=== PATIENT | female | born 1950 | race Two or more races ===

== ENCOUNTER 2023-05-19 05:36 | Inpatient (IN) | payer MEDICARE, SELFPAY ==
[2023-05-19] VITALS (82 sets, daily range): BP systolic 74–221; BP diastolic 56–156
--- NOTE | 2023-05-19 04:59 | EDRN ---
15mg etomidate and 8mg vecuronium IV administered per Dr Menjivar for intubation
--- NOTE | 2023-05-19 05:03 | EDRN ---
Pt intubated by Dr Menjivar with 7.0 ett, 22cm lip
[2023-05-19 05:05] LABS: % Basophils 0.8 % (0-2); % Eosinophils 2.1 % (0-6); % Immature Granulocytes 0.5 % (0-0.5); % Lymphocytes 57.9 % (20.5-51.1); % Monocytes 3.1 % (1.7-9.3); % Neutrophils 35.6 % (42.2-75.2); Absolute Basophils 0.1 10^3/uL (0-0.2); Absolute Eosinophils 0.3 10^3/uL (0-0.7); Absolute Immature Granulocytes 0.1 10^3/uL (0-0.05); Absolute Lymphocytes 8.1 10^3/uL (1.2-3.4); Absolute Monocytes 0.4 10^3/uL (0.1-0.6); Hematocrit 46.8 % (37.0-47.0); Mean Corp Hgb Conc. 32.1 g/dL (33.0-37.0); Mean Corpuscular Hgb 30.8 pg (27.0-31.0); Mean Corpuscular Volume 96.1 fL (81.0-99.0); Mean Platelet Volume 10.3 fL (7.4-10.4); Nucleated Red Blood Cells % 0 %; Platelet Count 315 10^3/uL (130-400); Red Blood Cell Count 4.87 10^6/uL (4.20-5.40); Red Cell Dist. Width 13.9 % (11.5-14.5); White Blood Cell Count 14.1 10^3/uL (4.8-10.8)
--- NOTE | 2023-05-19 05:09 | EDRN ---
5000 units heparin given IV by BAKARI Johnson per Dr Menjivar
--- NOTE | 2023-05-19 05:14 | HPS.HSE ---
Family Physician
-
Family Physician: Unknown.
Chief Complaint
-
Chest pain x3 days.
History of Present Illness
72 y/o female with essential hypertension per limited outpatient notes presenting with chest pain and respiratory instability. STEMI alert was activated by EMS. The patient was mottled and cyanotic per the emergency room physician and was
intubated prior to any history. All history is taken from EMS and the limited medical record.
EKG shows sinus tachycardia with LVH and a LBBB pattern with deep ST depressions in the anterolateral precordium and an overall ischemic appearance.
The patient's , Yin, arrived and provided limited history. She reports that the patient's chest pain has likely been going on for at least 3 weeks, but she only mentioned it over the past three days. She reports that the patient does not
visit doctors and has never taken more than one month's supply of a medication.
Yin also provided us with a DNR order signed in 2003. The ER reports that prior to intubation, the patient was told what intubation is and agreed to proceed. Further reading of the document reveals that the document is aimed more at a permanent
state rather than an acute presentation, but it does decline intubation, mechanical ventilation and invasive testing/procedures. After discussing this with Yin, she would like to proceed with cardiac catheterization and is listed as the decision
maker on the document.
CXR was performed prior to bringing the patient to the concrete mixing plant laborer. This shows diffuse, pulmonary infiltrates, right > left, the ET tube is in satisfactory position, an OG tube terminates in the stomach. Some laboratory studies returned. Of note -
WBC is 14.1, BUN 27, Cr 1.5, glucose 345.
Critical Care Time = 35 minutes.
Medical History
Past Medical History
Past Medical History: Reports HTN
Past Surgical History: Reports None
Social History
Unable to obtain full social history at this time due to: Patient Intubation
Family History
Family History: Unable to Obtain
Allergies / Home Medications
Allergies reflects when Allergies were last updated in [facility].
Home Medications with original date entered in [facility]
Allergy/Medication List:
Deferred.
If medication reconciliation has not been performed, why?: Unresponsive
Review of Systems
-
Unable to obtain full review of systems at this time due to: Patient Intubation
Physical Exam
Vital Signs
Vital Signs
Pulse Resp BP Pulse Ox
80 22 104/76 100
05/19/23 05:10 05/19/23 05:10 05/19/23 05:10 05/19/23 05:10
Physical Exam
General: Obese and Intubated
HEENT: NormoCephalic, Anicteric, Moist mucous membranes and Atraumatic
Respiratory: Rales
Cardiac: S1/S2 and Regular Rhythm
Breast: Deferred by me
GI: Soft, Non Tender, Non Distended and Normal Bowel Sounds
Rectal: Deferred by Provider
Genito-urinary: Deferred by me
Musculoskeletal: No Clubbing, No Cyanosis, Edema, Left Lower Extremity and Edema, Right Lower Extremity
Neuro: Sedated
Data Reviewed
-
Diagnostic Radiology: Image Personally Visualized and interpreted
Medical Tests (Nuc Med, Echo, EKG etc): Image Personally Visualized and interpreted and Report Reviewed by me
Impression/Plan
-
Impression/Plan: 72 y/o female with limited past medical contact admitted with chest pain for at least 3 days, respiratory failure requiring intubation/mechanical ventilation and EKG concerning for STEMI.
#Abnormal EKG/STEMI
-After thorough discussion with Yin (), the decision has been made to proceed with cardiac catheterization under emergency conditions.
-I explained risks/benefits, particularly in the context of the patient's DNR. She is agreeable.
-Further instructions to follow.
--- NOTE | 2023-05-19 05:14 | EDRN ---
Report given to ballistics laboratory gunsmith, will call when pt can come upstairs
--- NOTE | 2023-05-19 05:16 | EDRN ---
Dr Menjivar attempting to insert OG tube
[2023-05-19 05:20] LABS: ALT (SGPT) 21 U/L (0-35); AST (SGOT) 32 U/L (14-36); Albumin 3.7 g/dl (3.5-5.0); Alkaline Phosphatase 80 U/L (38-126); Blood Urea Nitrogen 27 mg/dl (7-17); Calcium 9.4 mg/dl (8.4-10.2); Carbon Dioxide 17 mmol/L (22-30); Chloride 104 mmol/L (98-107); Glucose 345 mg/dl (70-99); Potassium 4.2 mmol/L (3.5-5.1); Sodium 140 mmol/L (135-145); Total Bilirubin 0.7 mg/dl (0.2-1.3); Total Protein 6.1 g/dl (6.3-8.2)
--- NOTE | 2023-05-19 05:20 | EDRN ---
mushroom laborer ready, Dr Rey to bedside, OG tube inserted by Dr Menjivar
--- NOTE | 2023-05-19 05:21 | EDRN ---
Pt's to bedside
--- NOTE | 2023-05-19 05:21 | EDRN ---
Portable chest xray being obtained
[2023-05-19 05:23] LABS: INR 1.14; PT 14.4 Sec (11.4-14.6)
--- NOTE | 2023-05-19 05:23 | EDRN ---
Dr Rey speaking with pt's - given pt's Medicare card
[2023-05-19 05:24] LABS: APTT 29.8 Sec (23.4-35.0)
[2023-05-19 05:57] LABS: Troponin I 0.494 ng/ml
[2023-05-19 06:17] LABS: ACT-LR - POC 350 Seconds (116-155)
--- NOTE | 2023-05-19 06:23 | ED.GENMED ---
History of Present Illness
General
Chief Complaint: Chest Pain
Time Seen by Provider: 05/19/23 05:06
Travel History
Have you had any contact with someone who has COVID-19?: Unable to Answer
Do you have any symptoms of coronavirus? Fever > 100 degrees, chills, cough, shortness of breath, sore throat, loss of taste or smell, muscle aches, or headache?: Unable to Answer
History of Present Illness
History of Present Illness:
72-year-old female brought in by EMS after complaining of chest pain.� Per medic on scene, patient stated that she was having substernal chest pain that has been present for the last 3 days.� Medics stated that patient was mottled and gasping for
air.� Patient transported to the hospital immediately.� And route she got CPAP which medics stated was an improvement to her respiratory status.� Patient received fentanyl which did not change patient's chest pain.� STEMI alert was called
prehospital, though EKG was unable to be transmitted.� Patient has a past medical history significant for hypertension.� According to her , she has been noncompliant with outpatient physician appointments.�
Upon arrival, patient was nonverbal, mottled at very cyanotic.� She was gasping and air from air hunger.� She was able to consent to intubation with physical cues.� Patient was intubated by myself using a 7-0 tube.� An OG tube was placed shortly
thereafter.� Both tubes were confirmed with chest x-ray.
Review of systems: Chest pain, shortness of breath.� Review of systems limited due to patient condition and intubated status.
Physical exam:
General patient is obtunded elderly female who appears stated age.
ENT: Dentition appears intact with no trauma.� Neck is supple.
Chest: Heart is tachycardic rate.� Sinus rhythm.� No murmurs rubs or gallops appreciated
Pulmonary: Lungs are diminished bilaterally right worse than left.� There is some rhonchi heard
Abdomen is soft, nontender, nondistended.
Skin is diaphoretic mottled, lips are cyanotic
Extremities: Moves all 4 extremities.� Thready pulses.
Neuro: Unable to obtain due to patient condition
Psych: Unable to obtain due to patient condition
EKG shows sinus tachycardia rate of 122 with left ventricular hypertrophy.� Left bundle branch block present.� ST depressions in the anterior lateral leads.� Generalized ischemia present.� No old EKG available for comparison.
Differential: STEMI, ACS, flash pulmonary edema
Plan: STEMI alert was called at 4:45 AM despite not having an EKG.� Dr. Jeffery, employee health nurse contacted the ER.� Eventually spoke with him.� He arrived shortly after our conversation to take patient up to Explosives Worker.
, who became present at the bedside, produced a document after patient was intubated that patient was a DNR.� Patient's verbally consented to allow patient to be taken to the Explosives Worker for an invasive procedure.
Review of Systems
Review of Systems
Other source history: family and ambulance crew
All Other Systems: Not applicable
Constitutional: Reports sleep disturbance
Respiratory: Reports trouble breathing
Cardiac: Reports chest pain
Phy Exam
Physical Exam
Physical Exam:
Physical exam:
General patient is obtunded elderly female who appears stated age.
ENT: Dentition appears intact with no trauma.� Neck is supple.
Chest: Heart is tachycardic rate.� Sinus rhythm.� No murmurs rubs or gallops appreciated
Pulmonary: Lungs are diminished bilaterally right worse than left.� There is some rhonchi heard
Abdomen is soft, nontender, nondistended.
Skin is diaphoretic mottled, lips are cyanotic
Extremities: Moves all 4 extremities.� Thready pulses.
Neuro: Unable to obtain due to patient condition
Psych: Unable to obtain due to patient condition
General Physical Exam
General Presentation: severe distress
Scores
Heart Score for Chest Pain Patients
STEMI patient?: Yes
Course
Orders/Labs/Results
Orders:
Orders
05/19/23 04:57
Electrocardiogram (*1) Urgent
Reason for Study: Chest Pain
Cardiac Monitoring- Treatment ONCE
EKG- Treatment ONCE
IV Insert/Care/Rem.- Treatment PRN
O2 Therapy [RESP] Urgent
Titrate/Wean O2 to maintain O2 sat greater than (%): 90
Special Instructions: Maintain sats >/=90%
Pulse Ox/spot Check [RESP] Urgent
Quantity: 1
Special Instructions: ON ROOM AIR
05/19/23 04:58
Complete Blood Count/With Diff Urgent
Comprehensive Metabolic Panel Urgent
PTT Urgent
Prothrombin Time Urgent
Troponin I Urgent
05/19/23 05:06
CR Chest Portable - 1 View Urgent
Comment:
Reason For Exam: intubation, stemi
Reason Study Needs to be Portable: Patient Unstable
05/19/23 05:10
Propofol 1,000,000 Mcg/100 ml [Diprivan] 1,000,000 mcg in 100 ml .ROUTE .STK-MED
Abnormal Lab Results
05/19/23
04:58
WBC 14.1 H 10^3/uL
(4.8-10.8)
MCHC 32.1 L g/dL
(33.0-37.0)
Carbon Dioxide 17 L mmol/L
(22-30)
BUN 27 H mg/dl
(7-17)
Creatinine 1.5 H mg/dL
(0.6-1.0)
Glucose 345 H mg/dl
(70-99)
Troponin I 0.494 H* ng/ml
Total Protein 6.1 L g/dl
(6.3-8.2)
05/19/23 04:58
05/19/23 04:58
Vital Signs
Initial and Last Documented VS:
Initial Vital Signs
Pulse BP Pulse Ox
122 143/88 75
05/19/23 05:00 05/19/23 05:00 05/19/23 05:00
Last Documented Vital Signs
Pulse Resp BP Pulse Ox
141 22 221/156 100
05/19/23 05:25 05/19/23 05:25 05/19/23 05:25 05/19/23 05:25
Procedures
Intubations
Procedure completed by: Myself
Method of Intubation: glidescope
Tube size (cm): 7.0
Placement confirmed by: direct visualization
Breath sounds after intubation: equal
Intubation complications: no complications
MDM/Problems Addressed
Differential Diagnosis Includes:
STEMI, FPE, ACS, PTX,
MDM/Problems Addressed:
72f with chest pain, diaphoresis, pallor, mottled
Chronic conditions affecting care:
medical non compliance
*Critical Care Note
Total Time (30-74mins, 75-104mins- exclusive of procedures): 30 (Critical care statement: A total of 30 minutes of critical care time was provided for this patient. This time is separate from time utilized to perform the aforementioned documented
procedures. Aggregate critical care time includes only time during which I was engaged in work directl)
Patient Management
Social determinants of health affecting care: Poor outpatient follow-up
Discussion with other providers: Order Builder (Dr Rey)
ED Attending Note
-
Portions of this chart may have been created with voice recognition software.� Occasional wrong word or��sound alike� substitutions may have occurred due to the inherent limitations of voice recognition software.
Discharge Plan
Departure
Patient Disposition: TECHNICAL ANALYST
Date of Disposition: 05/19/23
Presentation/result/management discussed w/ accepting MD/DO: Dr Rey
Condition: Fair
Discharge Problem:
Cardiac ischemia
Interventions
Interventions:
*Risk Screen - Suicide Last Done: 05/19/23 04:53
*General Assessment Last Done: 05/19/23 04:53
*Neglect/Abuse Screening Last Done: 05/19/23 04:53
ED- Fall Risk Assessment Last Done: 05/19/23 05:17
*ED COVID-19 Vaccine History Last Done: 05/19/23 05:00
*Nursing Disposition Last Done: 05/19/23 05:31
ED- Cardiac Assessment Last Done: 05/19/23 05:16
Discharge Date and Time
Discharge Date/Time: 05/19/23 05:31
--- NOTE | 2023-05-19 07:00 | ITS.CL.ANGIO ---
Pugger Helper - Angioplasty
Angioplasty
Procedure Report:
CARDIAC CATHETERIZATION REPORT
Date of Procedure: 05/19/2023
Referring: Tico Menjivar D.O.
INDICATION: ST elevation myocardial infarction, hypoxic respiratory failure.
PROCEDURE:
1. Left heart catheterization.
2. Coronary angiography.
3. Successful PCI of the acutely occluded diagonal.
4. Left ventriculography.
ACCESS:
Failed right radial access as the wire failed to advance beyond the proximal forearm.
6 Hungarian right common femoral artery using a modified Seldinger technique with a micropuncture kit under ultrasound guidance.
CATHETERS:
1. 5 Hungarian JR4.
2. 5 Hungarian JL 4.
3. 6 Hungarian EBU 4.0 guiding catheter.
4. 5 Hungarian angled pigtail catheter.
HEMODYNAMIC DATA
Weight (kg): 72.0
AO (s/d/x, mmHg): 197/122/155
LV (s/x mmHg): 197/52
LEFT VENTRICULOGRAPHY: Performed in an REYES projection. Dilated left ventricle with akinesis of the inferior wall and severe hypokinesis of the lateral wall with severely depressed systolic function. Left ventricular ejection fraction estimated at
20%. There is at least moderate mitral valve regurgitation. The aortic root and visualized ascending aorta appear normal. There is no aortic valve insufficiency.
CORONARY ANGIOGRAPHY
Dominance: Right.
Left Main: Normal size, bifurcating vessel. There is no coronary artery disease.
LAD: Normal size vessel that wraps around the distal apex and gives rise to 1 significant diagonal. There is a 60-70% lesion in the distal vessel, prior to the apex. The diagonal is a normal-sized vessel supplying much of the lateral and
anterolateral wall. It is acutely occluded at its proximal margin.
Ramus: Congenitally absent.
Circumflex: Normal size, nondominant vessel giving rise to 2 observable marginals. The vessel is chronically subtotally occluded in its proximal margin. The first marginal is occluded at its origin. It appears to fill from faint collaterals.
The distal circumflex is supplied by autologous collaterals from the proximal circumflex atrial branch.
RCA: Normal size, dominant vessel. The vessel is chronically totally occluded in its midportion. The distal vessel supplied by collaterals from the LAD and the circumflex.
INTERVENTION(S)
1. Successful PCI of the acutely occluded large first diagonal (Medtronic [place] 2.0 x 18 MARIA EUGENIA) with reduction in stenosis to 0%, restoring BETO-3 flow.
Narrative:
The decision was made to proceed with percutaneous coronary intervention. After checking the LVEDP, furosemide 40 mg was given IV. The patient was hypertensive and nicardipine was ordered. The diagnostic catheter was removed over a wire and a 6Fr
EBU 4.0 guiding catheter was advanced to the aortic root and seated in the left main coronary artery. After placing the guiding catheter, the patient lapsed into polymorphic ventricular tachycardia. The patient was defibrillated 200 J with
confucianism of sinus rhythm. A Power Turn Flex wire was advanced into the distal diagonal. The acute, 100% proximal diagonal lesion was predilated with a 2.0 x 12 semi-compliant balloon to 12 cj. The semi-compliant balloon was removed and a
Medtronic [place] 2.0 x 18 drug-eluting stent was advanced. The stent was deployed at 12 atmospheres. The stent balloon was removed. Angiography was performed in orthogonal views, confirming good stent expansion and an excellent angiographic
result with some mild oversizing of the stent. At this point, the patient's blood pressure had fallen to between 140 and 160 mmHg systolic. Nicardipine was deferred. Nitroglycerin 100 mcg was given intracoronary with some modest improvement.
The coronary angiogram was reviewed. I was concerned that the patient may require intervention on the circumflex as I was not initially certain of his acuity. After reviewing the angiogram, I became more convinced that the circumflex lesions are a
chronic narrowing and that the diagonal remains the true culprit vessel. In keeping with the culprit shock data, I elected to end the procedure at this time rather than proceed to intervention on the circumflex.
The coronary wire was withdrawn and the guide was disengaged from the artery. The catheter was removed over a standard J-wire.
Closure Device: 6 Hungarian Angio-Seal.
Radiation (mGy): 371.60
DAP (cm2.Gy): 40.8793
Fluoroscopy time (minutes): 8.9
Sedation time (minutes): The patient was intubated and on propofol throughout the entire case.
CONCLUSIONS
1. 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
diagonal, status post successful PCI (Medtronic [place] 2.0 x 18 MARIA EUGENIA) with reduction in stenosis to 0%, restoring BETO-3 flow.
2. Mildly dilated left ventricle with akinesis of the inferior wall and severe hypokinesis of the lateral wall with severely depressed systolic function. Left ventricular ejection fraction estimated at 20%.
3. Severely elevated filling pressures (LVEDP = 52 mmHg at 72.0 kg).
4. At least moderate mitral valve regurgitation on ventriculography.
RECOMMENDATIONS:
1. Expectant management after cardiac catheterization via right common femoral approach.
2. Limited weight bearing for one week.
3. Dual antiplatelet therapy with aspirin and ticagrelor for at least 12 months, followed by aspirin indefinitely.
4. Aggressive diuresis given severity of filling pressure elevation and mitral regurgitation. Bumetanide drip has been ordered.
5. The patient will benefit from guideline directed medical therapy, but we will defer beta-colt at this time due to acute heart failure. Defer CHANA inhibitor due to renal dysfunction.
6. Secondary prevention with high-dose, high potency statin.
7. Echocardiogram ordered and pending.
8. Referral to cardiac rehab.
Copy to: Tico Menjivar D.O.
Benjamin Rey DO, FACC, FACP
--- NOTE | 2023-05-19 08:00 | PTCARENOTE ---
received patient from laborer carpentry dock. sedated and placed on vent by LAST DIPPER. out on propofol for sedation. Bumex gtt ordered by Dr Rey. Awaiting that to be sent up from pharmacy. Will initiate at ordered rate. Able to arouse patient by touch, Pupils 2mm
equal and sluggish. VSS. NSR. on AC on vent 22/450/+5 60%. 94%. OGT in place. bowels hypoactive. round belly. therm holt in place and draining clear yellow urine. Pulses weak even by doppler and limbs cool. warm blankets applied to patient. ABG
done by resp bedside. will continue to monitor.
[2023-05-19] MEDS: LEVOPHED 250 IV (08:20)
[2023-05-19] MEDS: BRILINTA 90 MG PO ×2 (08:34→19:54)
[2023-05-19] MEDS: PROTONIX 40 MG PO (08:34)
[2023-05-19] MEDS: LOW STRENGTH ASPIRIN 81 MG PO (08:34)
[2023-05-19] MEDS: BUMEX 50 IV ×2 (08:42→15:58)
[2023-05-19 08:43] LABS: B.E. -1.5 mmol/L; HCO3 24.3 mmol/L (21-28); Ionized Calcium 1.18 mMOL/L (1.15-1.33); O2 Saturation % 95.8 % (94-98); PCO2 44 mmHg (32-35); PO2 76 mmHg (83-108); Potassium 4.3 mMOL/L (3.5-5.1); pH 7.35 (7.35-7.45)
--- NOTE | 2023-05-19 09:12 | PTCARENOTE ---
levo initiated per orders for sys BP in 70s.
--- NOTE | 2023-05-19 09:44 | CON.INTV ---
Consultation
Consultation Request
Date/Time Consultation Requested: 05/19/2023-7 AM
Date/Time Consultation Performed: 05/19/2023-7:30 AM
Requesting Provider: Cardiology
Performing Provider: Dr. Leal
Reason for Consultation: Ventilator/critical care management
Medical History
-
Chief Complaint: Shortness of breath/CAD
History of Present Illness:
72-year-old female with a history of hypertension presented with chest pain noted to have STEMI, mottled in appearance as well as cyanotic intubated and taken to the cardiac catheterization lab for PCI of the acutely occluded large first
diagonal-mailer apprentice consulted for ventilator/critical care management 05/19/2023. Patient is intubated and sedated and review of systems was unobtainable. The patient does not have significant secretions. Cardiac catheterization results were
reviewed.
Past Medical History
Past Medical History: None (Hypertension)
Past Surgical History: None
Social History
Tobacco: Other (Social history unable as patient is intubated and old records are not available)
Occupational Exposures: Unknown asbestos exposure
Environmental Exposures: Unknown tuberculosis exposure
Family History
Family History: Unable to Obtain
Allergies / Home Medications
Allergies
Allergy/AdvReac Type Severity Reaction Status Date / Time
oxycodone [From Percodan] Allergy Unknown Verified 05/19/23 04:58
Penicillins Allergy Unknown Verified 05/19/23 05:18
Home Medications
Medication Instructions Recorded Confirmed Last Taken Type
Unobtainable 05/19/23 05/19/23 Unknown History
Review of Systems
-
Unable to Obtain full review of systems at this time due to: Patient Intubation
Vitals / Labs / Diagnostic Testing
Vital Signs
Pulse Resp BP Pulse Ox
141 22 221/156 100
05/19/23 05:25 05/19/23 05:25 05/19/23 05:25 05/19/23 05:25
Lab Data
05/19/23 04:58
05/19/23 04:58
Laboratory Results
05/19/23 05/19/23
04:58 08:34
PT 14.4
INR 1.14
APTT 29.8
pH 7.35
pCO2 44 H
pO2 76 L
HCO3 24.3
O2 Delivery Level
Diagnostic Testing:
Physical Exam
-
Exam:
Well-nourished and well-developed in no apparent distress
HEENT-atraumatic, normocephalic, oral tracheal intubation
Neck-supple, no JVD, no bruit
Heart-regular rate and rhythm-no murmurs, rubs or gallops
Chest with rare crackles at the bases
Abdomen-soft, nontender, nondistended, no hepatosplenomegaly
Extremities-no cyanosis, clubbing, edema and good peripheral pulses
Integument-intact, no rashes, lesions or ecchymosis
Neurologically sedated on the ventilator moving extremities
Assessment
-
72-year-old female with a history of hypertension presented with chest pain noted to have STEMI, mottled in appearance as well as cyanotic intubated and taken to the cardiac catheterization lab for PCI of the acutely occluded large first
diagonal-mailer apprentice consulted for ventilator/critical care management 05/19/2023.
Assessment
Respiratory failure due to STEMI/mottled/cyanosis with intubation in ED
Intubated 05/18/2023
Extubated
CAD/STEMI
Status postcardiac [id number]-XHX-buptisa occluded large first diagonal 05/18/2023-Dr. Jeffery
Elevated troponin
Cardiomyopathy-EF 20% on cardiac catheterization
Moderate mitral regurgitation
Congestive heart failure-reduced EF
Mild leukocytosis-WBC 14.1
NORRIS
Hyperglycemia-blood sugar 345
Conditions present prior to admission:
Hypertension
Plan
Patient admitted to cardiovascular intensive care unit
Ventilator settings reviewed
Wean FiO2
Wean PEEP
Spontaneous breathing trial once diuresed
Propofol for comfort
Fentanyl as needed for pain
VAP prevention protocol
Nebulizers if needed-currently not bronchospastic
Follow chest x-ray
Cardiology following-correspondence reviewed
Cardiac catheterization results noted-PCI of occluded first obtuse marginal
Diuresis as tolerated
Monitor renal function, electrolytes, intake/output, lower extremity edema and weight
Replace electrolytes as needed
Trend troponin
Eventual echocardiogram
May need repeat cardiac catheterization-yet to be determined
Norepinephrine as needed
Monitor leukocytosis
Sputum culture if secretions noted-no obvious history of aspiration
Monitor renal function
Nephrology evaluation if renal function worsens
Monitor blood sugar
Insulin supplementation as needed-might need insulin drip
Diabetic nurse practitioner consultation if blood sugars remain elevated
DVT prophylaxis-on Lovenox
GI prophylaxis while on the ventilator-on pantoprazole
Early nutrition
Early mobilization/bedside range of motion
Critical care statement: A total of 50 minutes of critical care time was provided for this patient today. This includes management of unstable vital signs, evaluation of the patient at bedside, reviewing the patient's pertinent medical records
including radiographs, ventilator management, pressor management, spontaneous breathing trial management, microbiology,, laboratory evaluations, and discussion with primary team, consultants, pharmacy, nutrition, physical therapy, case management,
charge nurse, critical care nursing, and respiratory therapy.
Diagnostic data:
Chest x-ray 05/19/2023-endotracheal tube tip above the ajay and nasogastric tube tip in the stomach, no pneumothorax, bilateral parenchymal opacifications right greater than left suspicious for atypical acute pulmonary edema
Cardiac catheterization 05/19/2023-successful PCI of acutely occluded large first diagonal, EF estimated 20%, moderate mitral regurgitation, severely elevated left ventricular end-diastolic pressures-52
Data Reviewed
-
EKG: Report reviewed by me
Radiology: Report reviewed by me
Medical Tests (Nuc Med, Echo etc): Report reviewed by me
Labs: Labs reviewed by me
Old Records: Reviewed
Critical Care Time (in minutes): 50
[2023-05-19 09:59] LABS: Lactic Acid 2.6 mmol/L (0.7-2.0)
[2023-05-19] MEDS: DIPRIVAN 100 IV (10:27)
--- NOTE | 2023-05-19 12:00 | PTCARENOTE ---
propofol and levo weaned off. patient stable and waking up. anxious. emotional support provided. updated over the phone.
[2023-05-19 13:04] LABS: Blood Urea Nitrogen 34 mg/dl (7-17); Calcium 8.6 mg/dl (8.4-10.2); Carbon Dioxide 26 mmol/L (22-30); Chloride 107 mmol/L (98-107); Glucose 116 mg/dl (70-99); Potassium 3.8 mmol/L (3.5-5.1); Sodium 138 mmol/L (135-145); Triglycerides 107 mg/dl (10-149); eGFR 27.71
--- NOTE | 2023-05-19 13:32 | W.PN.UPDATE ---
Update Note
Progress Note Update
Patient was tolerating CPAP wean for 2 hours and became agitated, had episode of emesis, possible aspiration
Patient extubated without difficulties and deep suctioned
Reevaluated the patient at the bedside-no distress postextubation, saturations are adequate
Will monitor closely for aspiration
Continue diuresis
Reviewed with respiratory therapy and critical care nursing
--- NOTE | 2023-05-19 13:56 | RESPNOTE ---
Extubated patient to 6l nasal cannula @ 13:00, without adversity
[2023-05-19] MEDS: DIURIL 0.5 GRAM VIAL 0.5 GRAMS IV (14:14)
[2023-05-19] MEDS: STERILE WATER FOR INJECTION 18 ML IV (14:15)
[2023-05-19] MEDS: MORPHINE SULFATE 2 MG IV ×3 (14:16→21:43)
--- NOTE | 2023-05-19 15:12 | W.PN.UPDATE ---
Update Note
Progress Note Update
Chart reviewed, including cardiac cath procedure and stenting.
Patient now extubated. Vomiting right before. Reports SOB, but O2 sat looks good. Check CXR.
Urine output is increasing on bumex gtt with diuril x1.
Continues on low dose levophed.
Discussed code status: she is full code, but would not want to be on ventilator for extended period of time.
Discussed with interventional cardiology and RN.
CCT 30 min.
[2023-05-19 16:12] LABS: Lactic Acid 1.3 mmol/L (0.7-2.0)
[2023-05-19] MEDS: ERYTHROMYCIN 0.5% OPHTHALMIC OINTMENT 1 APPLIC OPHTH ×2 (17:20→21:44)
--- NOTE | 2023-05-19 18:03 | PTCARENOTE ---
1245- patient gagging on ETT, vomitting brown bilious liquid around ETT. turned on side. attatched OGT to suction and suctioned out patients mouth. resp then at bedside. will call teller manager for orders to extubate if able. pulse ox 99%
[2023-05-19] MEDS: LOVENOX 40 MG SC (18:29)
[2023-05-19] MEDS: LIPITOR 80 MG PO (18:29)
--- NOTE | 2023-05-19 20:00 | PTCARENOTE ---
Assumed care of patient from prior RN, Pt resting in bed , dozing intermittently. AAO x 3, C/o continued chest achiness and continued Lt eye pain/burning. Pt refusing to open eye at this time for exam. SR on monitor with PVC's. Bumex drip
infusing, see flowsheet for totals. 3 L NC 98%, oxygen weaned down to 2 L at this time. Pt states she remains SOB however does not appear dyspneic at rest on exam. Abdomen soft and non tender, denies nausea. Hinton draining straw yellow urine.
No general edema appreciated. DP pulses weakly palpable. Will obtain labs as ordered and follow.
[2023-05-19 20:34] LABS: Blood Urea Nitrogen 40 mg/dl (7-17); Calcium 9.2 mg/dl (8.4-10.2); Carbon Dioxide 26 mmol/L (22-30); Chloride 97 mmol/L (98-107); Glucose 126 mg/dl (70-99); Potassium 3.4 mmol/L (3.5-5.1); Sodium 138 mmol/L (135-145); eGFR 34.05
--- NOTE | 2023-05-19 21:20 | PTCARENOTE ---
Dr Chaparro notified of Potassium level, orders obtained awaiting supplement from pharmacy.
[2023-05-19] MEDS: KCL 40 MEQ PO (21:42)
--- NOTE | 2023-05-19 22:00 | PTCARENOTE ---
Pt c/o continued chest discomfort and continued SOB at rest during hourly checks. Pt anxious and expressing concern that she is still having pain after having her stent previously today. Reassurance provided, educated on post cath pain
expectation. VSS, Pt given Morphine, EKG obtained. Reviewed with Dr Rey. No new orders obtained.
[2023-05-20] VITALS (29 sets, daily range): BP systolic 100–139; BP diastolic 52–105; BMI 24.9
[2023-05-20] MEDS: BUMEX 50 IV (03:31)
[2023-05-20 03:35] LABS: Hematocrit 42.8 % (37.0-47.0); Hemoglobin 14.9 g/dL (12.0-16.0); Mean Corp Hgb Conc. 34.8 g/dL (33.0-37.0); Mean Corpuscular Hgb 30.3 pg (27.0-31.0); Mean Corpuscular Volume 87.2 fL (81.0-99.0); Mean Platelet Volume 10.3 fL (7.4-10.4); Platelet Count 289 10^3/uL (130-400); Red Blood Cell Count 4.91 10^6/uL (4.20-5.40); Red Cell Dist. Width 13.7 % (11.5-14.5); White Blood Cell Count 15.8 10^3/uL (4.8-10.8)
[2023-05-20 03:43] LABS: Lactic Acid 1.2 mmol/L (0.7-2.0)
--- NOTE | 2023-05-20 04:10 | PTCARENOTE ---
AM labs obtained, along with EKG and weight. Pt denies chest pain or sob at present. VSS Assessment unchanged from prior.
[2023-05-20 04:22] LABS: ALT (SGPT) 150 U/L (0-35); Albumin 3.6 g/dl (3.5-5.0); Alkaline Phosphatase 68 U/L (38-126); Blood Urea Nitrogen 43 mg/dl (7-17); Calcium 9.2 mg/dl (8.4-10.2); Carbon Dioxide 29 mmol/L (22-30); Chloride 96 mmol/L (98-107); Direct Bilirubin 0.4 mg/dl (0.0-0.4); Estimated Creatinine Clearance 26 ml/min; Glucose 123 mg/dl (70-99); HDL Cholesterol 86 mg/dl; LDL Cholesterol, Calculated 90 mg/dl; Potassium 3.3 mmol/L (3.5-5.1); Sodium 136 mmol/L (135-145); Total Bilirubin 1.2 mg/dl (0.2-1.3); Total Cholesterol 202 mg/dl (50-199); Triglyceride 131 mg/dl (10-149); Very Low Density Lipoprotein 26 mg/dl (0-30); eGFR 31.66
[2023-05-20 04:38] LABS: AST (SGOT) 1107 U/L (14-36)
[2023-05-20] MEDS: KCL 40 MEQ PO ×3 (05:00→17:40)
[2023-05-20] MEDS: BRILINTA 90 MG PO ×2 (08:43→20:43)
[2023-05-20] MEDS: LOW STRENGTH ASPIRIN 81 MG PO (08:43)
[2023-05-20] MEDS: PROTONIX 40 MG PO (08:43)
[2023-05-20] MEDS: ERYTHROMYCIN 0.5% OPHTHALMIC OINTMENT 1 APPLIC OPHTH ×4 (08:44→20:43)
[2023-05-20] MEDS: MIRALAX 17 GRAMS TUBE (08:44)
[2023-05-20 08:50] LABS: Glycohemoglobin (HgbA1c) 5.8 % (4.0-5.6)
--- NOTE | 2023-05-20 09:03 | W.PN.CD ---
Addendum entered and electronically signed by Benjamin Rey DO 05/23/23 13:28:
Response to CDI: Potassium replacement was deemed necessary for immediate stabilization as well as maintaining adequate potassium levels in the context of aggressive diuresis.
Original Note:
Today's Communication / Plan
-
DC bumetanide gtt and start bumetanide 1 mg daily.
Replace potassium.
TTE pending.
Staged PCI, likely Saturday.
Start metoprolol succinate 12.5 mg daily.
Add dapagliflozin [address] abdomen/pelvis[address]
Check K+, Mg 2+.
Impression / Plan
-
Impression/Plan: 72 y/o female tobacco user and limited medical contact admitted with STEMI and acute heart failure.
#STEMI
-S/P successful PCI to a large, acutely occluded diagonal ([employer]tronic Rolando Clare 2.0 x 18 MARIA EUGENIA) with reduction in stenosis to 0%, restoring BETO III flow.
-Troponin peaked at 190.
-DAPT for at least one year, followed by aspirin indefinitely.
-LV gram shows inferior akinesis, lateral hypokinesis and severely depressed systolic function. LVEF estimated at 20%.
-TTE pending.
-Secondary prevention with high dose, high potency statin.
#ICMO/HFrEF
-Acute, severe.
-New diagnosis.
-Intermittently required norepinephrine yesterday.
-LVEDP = 52 mmHg at the time of cath.
-Severe transaminitis (AST 1107, ALT 150) - likely hepatic congestion.
-Started on bumetanide gtt, augmented with a dose of chlorothiazide. D/C gtt and start bumetanide 1 mg daily.
-Replace potassium.
-Start metoprolol succinate 12.5 mg daily.
-Start dapagliflozin 10 mg daily tomorrow.
#Residual CAD
-RCA 100% occlusion, subtotal mLCx and OM1.
-Plan for staged revascularization during this admission, again based on renal function.
#Acute Kidney Injury
-Stablizing.
-Creatinine 1.5 --> 1.9 --> 1.6 --> 1.7.
-Given leg cramping, check K+/Mg2+.
#Abdominal Pain
-No evidence of cath site complication.
-CT abdomen/pelvis.
#Eye Pain
-Acute, new diagnosis.
-I discussed with ophthalmology sr. operations manager, who believes that this is almost certainly a corneal abrasion, very common with rapid intubation.
-Erythromycin opth QID recommended and ordered.
#Hyperlipidemia
-New diagnosis.
-Total cholesterol = 202, LDL = 90, HDL = 86, Triglycerides = 131.
-Continue atorvastatin 80 mg daily.
-Goal LDL < 55.
#PPx
-SCD's for DVT/VTE.
-Pantoprazole for PUD.
#Dispo
-CVICU status.
-Full code.
Critical Care Time = 36 minutes.
Subjective/Interval History:
The patient had some mild, intermittent chest pain overnight.
EKG appears improved from presentation.
Her SOB is improving with diuresis, though still intermittent.
Weight is down 9.2 kg.
She complained of severe left eye pain.
CXR shows substantial improvement.
She is complaining of leg cramping and abdominal pain. There is some tenderdness to palptation.
DATA:
CXR, 05/19/2023:
IMPRESSION:
Small loculated right pleural effusion. New.
Mild opacification right lower lung field concerning for pneumonia. Mildly improved.
Mild left lower lobe atelectasis versus scarring. New.
Cardiac Catheterization/PCI, 05/19/2023:
CONCLUSIONS
1.� Right dominant circulation with chronic total occlusion of the mid RCA, chronic subtotal occlusion of the circumflex and the first obtuse marginal, a 60-70% lesion in the distal LAD, proximal to the apex and an acutely occluded, large first
diagonal, status post successful PCI (Medtronic Rolando Clare 2.0 x 18 MARIA EUGENIA) with reduction in stenosis to 0%, restoring BETO-3 flow.
2.� Mildly dilated left ventricle with akinesis of the inferior wall and severe hypokinesis of the lateral wall with severely depressed systolic function.� Left ventricular ejection fraction estimated at 20%.
3.� Severely elevated filling pressures (LVEDP = 52 mmHg at 72.0 kg).
4.� At least moderate mitral valve regurgitation on ventriculography.
Physical Exam
Vital Signs/Labs
Vital Signs
Temp Pulse Resp BP Pulse Ox
37.8 C 63 18 112/59 95
05/20/23 04:01 05/20/23 08:00 05/20/23 08:00 05/20/23 07:00 05/20/23 08:00
05/18/23 05/19/23 05/20/23
11:59 11:59 11:59
Actual Weight 75 kg 65.8 kg
05/20/23 03:18
05/20/23 03:17
PT 14.4 Sec (11.4-14.6) 05/19/23 04:58
INR 1.14 05/19/23 04:58
APTT 29.8 Sec (23.4-35.0) 05/19/23 04:58
Triglycerides 131 mg/dl (10-149) 05/20/23 03:17
LDL Cholesterol, Calc 90 mg/dl 05/20/23 03:17
VLDL Cholesterol, Calc 26 mg/dl (0-30) 05/20/23 03:17
HDL Cholesterol 86 mg/dl 05/20/23 03:17
LAB Results
05/19/23 05/19/23 05/19/23
04:58 15:26 20:00
Troponin I 0.494 H* 146.000 H* 190.000 H* D
05/20/23 05/20/23
00:00 03:18
Troponin I Cancelled 182.000 H*
Physical Exam
Constitutional: No acute distress and Comfortable
EENT: Anicteric and Moist mucous membranes
Cardiovascular: Rhythm & rate is regular, Pedal edema is absent, JVD pressure is normal, S1S2 is normal and Murmur/rub/gallop absent
Respiratory: Respiratory effort normal, Lungs clear to auscul., Wheeze Absent, Crackles Absent and Rhonchi Absent
GI: Soft, Distention absent, Flat and Abdomen is tender
Neuro/Psych: AO x 3
Other: Cath Site (Right femoral access site is C/D/I.)
Data Reviewed
-
Date of Service: May 20, 2023
Medical Decision Making: Reviewed Test Results, Independent Historian Assessment, Test Interpretation and Review of Case with other Provider
EKG: Tracing Personally Visualized and interpreted and Report Reviewed by me
X-Ray/CT/US/MRI/NUC/PET: Image Personally Visualized and interpreted and Report Reviewed by me
Medical Tests (PFT, Pathology etc): Image Personally Visualized and interpreted and Report Reviewed by me
Labs: Labs Reviewed by me and Labs Ordered by me
Old Records: Reviewed
[2023-05-20] MEDS: TOPROL XL 12.5 MG PO (09:46)
[2023-05-20] MEDS: BUMEX 1 MG PO (09:47)
--- NOTE | 2023-05-20 10:30 | PTCARENOTE ---
Assumed care of patient from prior RN. She appears anxious and is talking rapidly. Pt given booklet on Healthy Heart and CAD. Modifiable and nonmodifiable risk factors for CAD discussed. Smoking cessation discussed and pt states she will quit
smoking. Teach back method demonstrated that the patient understood the education.
--- NOTE | 2023-05-20 11:05 | W.PN.INTV ---
Today's Communication / Plan
Recommendations
DAPT
SpO2 goal >90-94%
Up OOB as tolerated; IS
Assessment
-
72-year-old female with a history of hypertension presented with chest pain noted to have STEMI, mottled in appearance as well as cyanotic intubated and taken to the cardiac catheterization lab for PCI of the acutely occluded large first
diagonal-ux design manager consulted for ventilator/critical care management 05/19/2023.
Assessment
Respiratory failure due to STEMI/mottled/cyanosis with intubation in ED
Intubated 05/18/2023
Extubated 05/19/2023
CAD/STEMI
Status postcardiac gfyozmlqdehucag-ZBE-zsurfaq occluded large first diagonal 05/18/2023-Dr. Jeffery
Elevated troponin
Cardiomyopathy-EF 30-35% with stage II diastolic dysfunction via TTE 05/20/2023
Valvular heart disease - mild/moderate mitral regurgitation;mild/moderate AI
Leukocytosis
NORRIS
Hyperglycemia - improved
Conditions present prior to admission:
Hypertension
Plan
Patient admitted to cardiovascular intensive care unit
Maintain SpO2 >90-94%
Aspiration precautions
Maintain MAP>65
Cardiology following-correspondence reviewed
Continue DAPT
Monitor renal function, electrolytes, intake/output, lower extremity edema and weight
Replete K>4, Mg>2
Trend leukocytosis
Sputum culture if secretions noted-no obvious history of aspiration
Monitor renal function
Nephrology evaluation if renal function worsens
Monitor blood sugar with goal BG 140-180
Diabetic nurse practitioner consultation if blood sugars remain elevated
Bibasilar consolidation with small b/l pleural effusions (R>L), appears more like subsegmental atelectasis in setting of ADHF --> sodium/fluid restrict, encourage IS and up OOB as tolerated
DVT prophylaxis-on Lovenox
Early nutrition
Early mobilization
Diagnostic data:
CT Abdomen/Pelvis 05-20-2023:
IMPRESSION: No acute pathology of the abdomen or pelvis identified.
Tiny bilateral pleural effusions.
Mild bibasilar consolidation likely atelectasis. Developing pneumonia not excluded.
Gallstone.
Mild fecal material throughout the colon.
Mild diverticulosis
Changes of the right groin possibly acute recent procedure or prior inguinal hernia repair. Clinical correlation recommended. No evidence of hematoma.
Chest x-ray 05/19/2023-endotracheal tube tip above the ajay and nasogastric tube tip in the stomach, no pneumothorax, bilateral parenchymal opacifications right greater than left suspicious for atypical acute pulmonary edema
cxr 05/20/2023 - Small loculated right pleural effusion. New. Mild opacification right lower lung field concerning for pneumonia. Mildly improved. Mild left lower lobe atelectasis versus scarring. New
Cardiac catheterization 05/19/2023-successful PCI of acutely occluded large first diagonal, EF estimated 20%, moderate mitral regurgitation, severely elevated left ventricular end-diastolic pressures-52
Subjective Dataa
Subjective Data
Date of Service:
Date of Service: May 20, 2023
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
Subjective:
Pt seen this early afternoon - she is doing well. Saturating 93% on room air and BP 115/53.
Review of Systems
General: Other ( negative unless mentioned above)
Objective Data
Data Reviewed
Vital Signs / I&O / Oxygen:
Vital Signs
Temp Pulse Resp BP Pulse Ox
98.8 F 76 15 132/82 96
05/20/23 16:00 05/20/23 16:35 05/20/23 16:35 05/20/23 16:35 05/20/23 16:35
Intake and Output
05/19/23 05/20/23 05/21/23
06:59 06:59 06:59
Intake Total 432.9 / 436.9 472 / 472
Output Total 5010 / 5135 765 / 765
Balance -4577.1 / -4698.1 -293 / -293
SaO2 96
Nasal Cannula flow liters per 2
minute
Physical Exam
General: Comfortable
HEENT: Normocephalic and Anicteric
Cardiovascular: S1-S2 and Peripheral Edema (negative)
Respiratory: Clear and Wheeze (negative)
GI: Soft, Non Distended and Non Tender
Neurology: Awake and Alert
Skin: Warm and Dry
Labs/Micro/Reports
Lab Data
05/20/23 12:54
05/20/23 12:54
--- NOTE | 2023-05-20 11:33 | PTCARENOTE ---
Discussed with Jessica Muñoz the patient's need for the urinary catheter, urinary cath d/c at 1130. Stat lock removed with alcohol. Notified her of the following:
Mrs. Edge in 2264 has been complaining of abdominal pain, diffuse, intermittent. She expelled alot of gas but is still complaining. The pain is not associated with her right groin area (puncture site) it is diffuse throughout. If you are concerned
about any kind of retro bleed I can do HGB too. She is also complaining about leg cramping (I can draw lytes if you would like).
MUNIR Muñoz will come see the patient.
[2023-05-20] MEDS: MYLICON 80 MG PO (12:35)
--- NOTE | 2023-05-20 12:57 | PTCARENOTE ---
Discussed with Dr. Rey pt's current complaints. Dr Rey at bedside and examined patient's complaints...lower back pain, abdominal pain, bilateral LE pain (in calves). Taking pt for a CT scan now.
[2023-05-20 13:05] LABS: Hematocrit 43.2 % (37.0-47.0); Hemoglobin 14.5 g/dL (12.0-16.0)
[2023-05-20 13:16] LABS: Blood Urea Nitrogen 46 mg/dl (7-17); Calcium 8.6 mg/dl (8.4-10.2); Carbon Dioxide 33 mmol/L (22-30); Chloride 97 mmol/L (98-107); Estimated Creatinine Clearance 27 ml/min; Glucose 131 mg/dl (70-99); Magnesium 2.2 mg/dl (1.6-2.3); Potassium 3.8 mmol/L (3.5-5.1); Sodium 135 mmol/L (135-145); eGFR 34.05
--- NOTE | 2023-05-20 13:25 | PTCARENOTE ---
CT scan completed, air filled loops of bowel and a gall stone seen on preliminary view. HGB and lytes pending.
--- NOTE | 2023-05-20 14:27 | CM ---
Reviewed chart. Met with Mrs. Edge and her spouse to review discharge plans. She states prior to admission she resides with her spouse in a one story home with thirteen steps to enter. She states prior to admission she was independent with
ambulation and adls. She states she does not have any DME in the home. She states she does not have a prescription plan and uses [facility]. Will give them patient assistance programs for Brilinta, Farxiga, Jardiance and Entresto to see if
she will qualify for the program. Her spouse will be home to assist in her care if needed. Medical work-up in progress. The discharge plan is to return home with her spouse when medically stable.
--- NOTE | 2023-05-20 17:15 | PTCARENOTE ---
Oxygen via nasal cannula d/c at 1045 this Am and pt tolerating well with sats greater than 93 percent.
[2023-05-20] MEDS: LIPITOR 80 MG PO (17:40)
--- NOTE | 2023-05-20 17:42 | PTCARENOTE ---
Dr Rey in to see patient and evaluate left abdomen pain. He explained her procedure saturday. No further treatment of left abd pain per Dr Rey.
[2023-05-20] MEDS: LOVENOX 30 MG SC (17:47)
[2023-05-20] MEDS: TYLENOL 650 MG PO (17:48)
--- NOTE | 2023-05-20 18:35 | PTCARENOTE ---
Extensive patient education done about plan of care, heart failure and heart disease. Discussed with patient and her Yin via speaker phone. Pathophysiology of heart failure and CAD discussed. Lifestyle management with healthy heart diet,
risk factor modification, daily weight, and low fat low sodium low carb diet discussed with both. Both the patient and her demonstrate understanding of the teaching using the teach back method.
--- NOTE | 2023-05-20 20:00 | PTCARENOTE ---
[facility] rounds completed. Pt resting in bed at this time. AAOx3. SR on monitor. HR 70s. +murmur. BP 122/60. LE doppler pulses. Bilateral radial pulses palpable. No edema noted. RA. POX 94%. Lung sounds audible. Abdomen
soft/nontender. Right groin cath site CDI. Right hand PIV CDI and flushes. Pt states pain is 'not bad,' at this time. Call gayle within reach.
[2023-05-21] VITALS (19 sets, daily range): BP systolic 103–144; BP diastolic 49–94; BMI 24.7
--- NOTE | 2023-05-21 00:07 | PTCARENOTE ---
Previous assessment unchanged. Pt SR on monitor. HR 60-70s. BP 128/64. RA. POX 94%. Pt resting in bed at this time. Call gayle within reach.
--- NOTE | 2023-05-21 04:45 | PTCARENOTE ---
Previous assessment unchanged. SR w/ occasional PVCs on monitor. HR 60s-70s. BP stable. RA. POX 91-96%. Pt assisted OOB to the bathroom to void and brush teeth and then repositioned back into bed. Labs drawn and sent. Call gayle within reach.
[2023-05-21 04:55] LABS: Hematocrit 37.7 % (37.0-47.0); Mean Corp Hgb Conc. 34.5 g/dL (33.0-37.0); Mean Corpuscular Volume 87.1 fL (81.0-99.0); Mean Platelet Volume 10.5 fL (7.4-10.4); Platelet Count 241 10^3/uL (130-400); Red Blood Cell Count 4.33 10^6/uL (4.20-5.40); Red Cell Dist. Width 13.8 % (11.5-14.5); White Blood Cell Count 12.7 10^3/uL (4.8-10.8)
[2023-05-21 05:03] LABS: ALT (SGPT) 119 U/L (0-35); AST (SGOT) 486 U/L (14-36); Albumin 3.1 g/dl (3.5-5.0); Alkaline Phosphatase 62 U/L (38-126); Blood Urea Nitrogen 49 mg/dl (7-17); Calcium 8.8 mg/dl (8.4-10.2); Carbon Dioxide 31 mmol/L (22-30); Chloride 98 mmol/L (98-107); Estimated Creatinine Clearance 31 ml/min; Glucose 112 mg/dl (70-99); Potassium 3.6 mmol/L (3.5-5.1); Sodium 136 mmol/L (135-145); Total Bilirubin 1.6 mg/dl (0.2-1.3); Total Protein 5.5 g/dl (6.3-8.2); eGFR 39.97
[2023-05-21] MEDS: LOW STRENGTH ASPIRIN 81 MG PO (08:24)
[2023-05-21] MEDS: BUMEX 1 MG PO (08:24)
[2023-05-21] MEDS: PROTONIX 40 MG PO (08:24)
[2023-05-21] MEDS: TOPROL XL 12.5 MG PO (08:24)
[2023-05-21] MEDS: PLAVIX 600 MG PO (08:24)
[2023-05-21] MEDS: ERYTHROMYCIN 0.5% OPHTHALMIC OINTMENT 1 APPLIC OPHTH ×4 (08:25→22:53)
[2023-05-21] MEDS: MIRALAX 17 GRAMS TUBE (08:25)
[2023-05-21] MEDS: KCL 40 MEQ PO (08:25)
--- NOTE | 2023-05-21 09:09 | PTCARENOTE ---
Received pt from nightshift RN; pt AAOX3 and resting comfortably in bed; NSR BBB,n monitor and VSS; + murmur; lungs diminished; positive bowel sounds; pt voiding clear yellow urine; trace lower extremity edema noted; pulses present by Doppler; right
groin dressing C/D/I; see nursing documentation for details.
--- NOTE | 2023-05-21 09:44 | W.PN.INTV ---
Today's Communication / Plan
Recommendations
DAPT
SpO2 goal >90-94%
Up OOB as tolerated; IS
Patient downgraded to IVU status. Home Appliance Tech/pulmonary service will now sign off. Please reconsult if there are any additional questions/concerns, or if respiratory status deteriorates.
Assessment
-
72-year-old female with a history of hypertension presented with chest pain noted to have STEMI, mottled in appearance as well as cyanotic intubated and taken to the cardiac catheterization lab for PCI of the acutely occluded large first
diagonal-gear hobber set up operator consulted for ventilator/critical care management 05/19/2023.
Assessment
Respiratory failure due to STEMI/mottled/cyanosis with intubation in ED
Intubated 05/18/2023
Extubated 05/19/2023
CAD/STEMI
Status postcardiac [id number] occluded large first diagonal 05/18/2023-Dr. Jeffery
Elevated troponin
Cardiomyopathy-EF 30-35% with stage II diastolic dysfunction via TTE 05/20/2023
Valvular heart disease - mild/moderate mitral regurgitation;mild/moderate AI
Leukocytosis
NORRIS
Hyperglycemia - improved
Conditions present prior to admission:
Hypertension
Plan
Patient admitted to cardiovascular intensive care unit
Maintain SpO2 >90-94%
Aspiration precautions
Maintain MAP>65
Cardiology following-correspondence reviewed
Continue DAPT
Monitor renal function, electrolytes, intake/output, lower extremity edema and weight
Replete K>4, Mg>2
She is awaiting left heart catheterization tomorrow
Trend leukocytosis
Sputum culture if secretions noted-no obvious history of aspiration
Monitor renal function
Nephrology evaluation if renal function worsens
Monitor blood sugar with goal BG 140-180
Diabetic nurse practitioner consultation if blood sugars remain elevated
Bibasilar consolidation with small b/l pleural effusions (R>L), appears more like subsegmental atelectasis in setting of ADHF --> sodium/fluid restrict, encourage IS and up OOB as tolerated
DVT prophylaxis-on Lovenox
Early nutrition
Early mobilization
Patient is now downgraded to IVU status. Home Appliance Tech/pulmonary service will now sign off. Please reconsult if there are any additional questions/concerns, or if respiratory status deteriorates. Thank you for allowing us to be involved in the care
of this patient..
Diagnostic data:
CT Abdomen/Pelvis 05-20-2023:
IMPRESSION: No acute pathology of the abdomen or pelvis identified.
Tiny bilateral pleural effusions.
Mild bibasilar consolidation likely atelectasis. Developing pneumonia not excluded.
Gallstone.
Mild fecal material throughout the colon.
Mild diverticulosis
Changes of the right groin possibly acute recent procedure or prior inguinal hernia repair. Clinical correlation recommended. No evidence of hematoma.
Chest x-ray 05/19/2023-endotracheal tube tip above the ajay and nasogastric tube tip in the stomach, no pneumothorax, bilateral parenchymal opacifications right greater than left suspicious for atypical acute pulmonary edema
cxr 05/20/2023 - Small loculated right pleural effusion. New. Mild opacification right lower lung field concerning for pneumonia. Mildly improved. Mild left lower lobe atelectasis versus scarring. New
Cardiac catheterization 05/19/2023-successful PCI of acutely occluded large first diagonal, EF estimated 20%, moderate mitral regurgitation, severely elevated left ventricular end-diastolic pressures-52
Subjective Dataa
Subjective Data
Date of Service:
Date of Service: May 21, 2023
Chief Complaint: Home Appliance Tech Follow Up
Subjective:
Patient seen this morning. Heart rate 69, she is on room air breathing comfortably. Complains of left-sided back pain which has been going on/off for few days. No shortness of breath, abdominal pain, fevers or chills. She is NPO past midnight
for PCI/LHC tomorrow.
Review of Systems
General: Other (12 point ROS performed and is negative unless mentioned above.)
Objective Data
Data Reviewed
Vital Signs / I&O / Oxygen:
Vital Signs
Temp Pulse Resp BP Pulse Ox
98.4 F 72 27 118/62 95
05/21/23 08:00 05/21/23 08:30 05/21/23 08:15 05/21/23 08:00 05/21/23 09:31
Intake and Output
05/20/23 05/21/23 05/22/23
06:59 06:59 06:59
Intake Total 432.9 / 436.9 472 / 472
Output Total 5010 / 5135 1215 / 1215
Balance -4577.1 / -4698.1 -743 / -743
SaO2 95
Nasal Cannula flow liters per 2
minute
Physical Exam
General: Comfortable
HEENT: Normocephalic and Anicteric
Cardiovascular: S1-S2 and Peripheral Edema (negative)
Respiratory: Clear and Wheeze (negative)
GI: Soft, Non Distended and Non Tender
Neurology: Awake and Alert
Skin: Warm and Dry
Labs/Micro/Reports
Lab Data
05/21/23 04:24
05/21/23 04:24
--- NOTE | 2023-05-21 09:46 | W.PN.CD ---
Today's Communication / Plan
-
NPO p MN for PCI tomorrow
Holding off on starting ACEI until after Cr stabilizes following second procedure
Would not start entresto if patient cannot afford it- use ACEI or generic ARB
Impression / Plan
-
Impression/Plan: 72 y/o female tobacco user and limited medical contact admitted with STEMI and acute heart failure.
#STEMI
-S/P successful PCI to a large, acutely occluded diagonal (Medtronic Rol[place] 2.0 x 18 MARIA EUGENIA) with reduction in stenosis to 0%, restoring BETO III flow.
-Troponin peaked at 190.
-DAPT for at least one year, followed by aspirin indefinitely.
-ECHO shows EF 30-35%, IL HK, mild to mod AR, mld to mod MR
-Secondary prevention with high dose, high potency statin.
- Brilinta changed to plavix for cost reasons
#ICMO/HFrEF
-Acute, severe.
-New diagnosis.
-Intermittently required norepinephrine yesterday.
-LVEDP = 52 mmHg at the time of cath.
-Started on bumetanide gtt, augmented with a dose of chlorothiazide. D/C gtt and start bumetanide 1 mg daily.
-Replace potassium.
#Residual CAD
-RCA 100% occlusion, subtotal mLCx and OM1.
-Plan for staged revascularization tomorrow
#Acute Kidney Injury
-Stablizing.
-Creatinine 1.5 --> 1.9 --> 1.6 --> 1.7- 1.4
#Eye Pain
-Acute, new diagnosis. Improving
- Dr Rey discussed with ophthalmology process control tech, who believes that this is almost certainly a corneal abrasion, very common with rapid intubation.
-Erythromycin opth QID recommended and ordered.
#Hyperlipidemia
-New diagnosis.
-Total cholesterol = 202, LDL = 90, HDL = 86, Triglycerides = 131.
-Continue atorvastatin 80 mg daily.
-Goal LDL < 55.
#PPx
-SCD's for DVT/VTE.
-Pantoprazole for PUD.
#Dispo
-CVICU status.
-Full code.
Subjective/Interval History:
No CP
Eye pain improved
Mild SOB transiently this AM
DATA:
CXR, 05/19/2023:
IMPRESSION:
Small loculated right pleural effusion. New.
Mild opacification right lower lung field concerning for pneumonia. Mildly improved.
Mild left lower lobe atelectasis versus scarring. New.
Cardiac Catheterization/PCI, 05/19/2023:
CONCLUSIONS
1.� Right dominant circulation with chronic total occlusion of the mid RCA, chronic subtotal occlusion of the circumflex and the first obtuse marginal, a 60-70% lesion in the distal LAD, proximal to the apex and an acutely occluded, large first
diagonal, status post successful PCI (Medtronic [place] 2.0 x 18 MARIA EUGENIA) with reduction in stenosis to 0%, restoring BETO-3 flow.
2.� Mildly dilated left ventricle with akinesis of the inferior wall and severe hypokinesis of the lateral wall with severely depressed systolic function.� Left ventricular ejection fraction estimated at 20%.
3.� Severely elevated filling pressures (LVEDP = 52 mmHg at 72.0 kg).
4.� At least moderate mitral valve regurgitation on ventriculography.
Physical Exam
Vital Signs/Labs
Vital Signs
Temp Pulse Resp BP Pulse Ox
98.4 F 72 27 118/62 95
05/21/23 08:00 05/21/23 08:30 05/21/23 08:15 05/21/23 08:00 05/21/23 09:31
05/20/23 05/21/23 05/22/23
06:59 06:59 06:59
Actual Weight 145 lb 1.027 oz 143 lb 8.335 oz
05/21/23 04:24
05/21/23 04:24
PT 14.4 Sec (11.4-14.6) 05/19/23 04:58
INR 1.14 05/19/23 04:58
APTT 29.8 Sec (23.4-35.0) 05/19/23 04:58
Magnesium 2.2 mg/dl (1.6-2.3) 05/20/23 12:54
Triglycerides 131 mg/dl (10-149) 05/20/23 03:17
LDL Cholesterol, Calc 90 mg/dl 05/20/23 03:17
VLDL Cholesterol, Calc 26 mg/dl (0-30) 05/20/23 03:17
HDL Cholesterol 86 mg/dl 05/20/23 03:17
LAB Results
05/19/23 05/19/23 05/19/23
04:58 15:26 20:00
Troponin I 0.494 H* 146.000 H* 190.000 H* D
05/20/23 05/20/23
00:00 03:18
Troponin I Cancelled 182.000 H*
Physical Exam
Constitutional: Comfortable
Cardiovascular: Rhythm & rate is regular, S1S2 is normal and Murmur/rub/gallop absent
Respiratory: Respiratory effort normal, Lungs clear to auscul., Wheeze Absent and Crackles Absent
GI: Soft and Non tender
Neuro/Psych: AO x 3 and Motor deficits absent
Data Reviewed
-
Date of Service: May 21, 2023
--- NOTE | 2023-05-21 12:00 | PTCARENOTE ---
Bedside walking rounds report received. Patient is awake alert and oriented x 3. Denies pain or chest pain. NSR. Room air.
--- NOTE | 2023-05-21 13:40 | PTCARENOTE ---
Short burst of asymptomatic a fibb/a tach on monitor asymptomatic rates 120's to 130's: Dr. López here on unit and made aware of same: no new orders at this time.
--- NOTE | 2023-05-21 14:18 | CM ---
Reviewed chart. Met with Ms. Edge to review discharge plans. She states she is feeling okay. Briefly reviewed patient assistance programs for Entresto, Jarvelasquezance, Farxiga and Brilinta. Will wait to see what the physician prescribes for
medications. Prior to admission she resides with her spouse in a one story home with thirteen steps to enter. Prior to admission she was independent with ambulation and adls. She does not have any DME in the home. She does not have a prescription
plan. Medical work-up in progress. The discharge plan is to return home with her spouse when medically stable.
--- NOTE | 2023-05-21 14:54 | PN.CDI ---
CDI
- -
CDI:
Physician Documentation Request
Admit Date: 05/19/23 05:36
Dear Doctor Maribel,
Please review the following and provide your response in the progress notes.
Clinical Indicators:
PN, 05/20
#Replace potassium.
#-Replace potassium.
PN, 05/21
#-Replace potassium.
Laboratory Tests
05/19/23 05/19/23 05/19/23
04:58 12:41 20:00
Potassium 4.2 3.8 3.4 L
05/20/23 05/20/23 05/21/23
03:17 12:54 04:24
Potassium 3.3 L 3.8 3.6
Medications
Potassium Chloride (Potassium Chloride 20 Meq Extended Release Tablet) 40 meq PO DAILY ALIREZA
Stop: 06/17/23 09:59
Last Admin: 05/21/23 08:25 Dose: 40 meq
Potassium Chloride (Potassium Chloride 20 Meq Extended Release Tablet) 40 meq PO NOW STA
Stop: 05/20/23 17:02
Last Admin: 05/20/23 17:40 Dose: 40 meq
Potassium Chloride (Potassium Chloride 20 Meq Extended Release Tablet) 40 meq PO NOW STA
Stop: 05/19/23 21:41
Last Admin: 05/19/23 21:42 Dose: 40 meq
Potassium Chloride (Potassium Chloride 20 Meq Extended Release Tablet) 40 meq PO NOW STA
Stop: 05/20/23 05:16
Last Admin: 05/20/23 05:00 Dose: 40 meq
Please clarify in the appropriate diagnosis that supports the above abnormalities and additional evaluation, monitoring and/or treatment rendered:
Hypokalemia
Abnormal lab value, clinically insignificant
Other
Unable to determine
Use of terms such as suspected, likely, concern for, or probable (associated with a specific diagnosis that is being evaluated, monitored, or treated as if it exists) are acceptable and can be coded in the inpatient setting, when documented at the
time of discharge.
Thank you,
Caty Lozano RN BSN CCDS
CDI Specialist
please contact via tiger text
Please use your independent medical judgment in providing your response.
--- NOTE | 2023-05-21 15:02 | PN.CDI ---
CDI
- -
CDI:
Physician Documentation Request
Admit Date: 05/19/23 05:36
Dear Doctor Maribel,
Please review the following and provide your response in the progress notes.
Clinical Indicators:
PN, 05/19
#Continues on low dose levophed.
PN, 05/20
#STEMI
#ICMO/HFrEF
#-Acute, severe.
#-New diagnosis.
#-Intermittently required norepinephrine yesterday.
Selected Entries
05/19/23
08:24 05/19/23
08:30 05/19/23
08:40
MAP (cuff-Brit Monitor) 66 73 68
05/19/23
08:50 05/19/23
09:00
MAP (cuff-Brit Monitor) 77 76
Medications
Norepinephrine Bitartrate (Levophed) 4 mg in 250 mls @ 0 mls/hr IV PER PROTOCOL ALIREZA; Protocol
Last Admin: 05/19/23 08:20 Dose: 250 mls
Please clarify which of the following is the most likely etiology of the above symptoms and treatment rendered:
Cardiogenic shock
Shock, unknown type
Hypotension - indicate type/etiology, such as idiopathic, neurogenic or orthostatic, post-procedural, postoperative, due to hemodialysis, chronic, drug induced (indicate drug), etc.
Hypotension - unknown type/etiology
Other
Use of terms such as suspected, likely, concern for, or probable (associated with a specific diagnosis that is being evaluated, monitored, or treated as if it exists) are acceptable and can be coded in the inpatient setting, when documented at the
time of discharge.
Thank you,
Caty Lozano RN BSN CCDS
CDI Specialist
please contact via tiger text
Please use your independent medical judgment in providing your response.
[2023-05-21] MEDS: TYLENOL 650 MG PO ×2 (15:50→23:07)
--- NOTE | 2023-05-21 16:00 | PTCARENOTE ---
No acute changes. Dozing on rounds. NSR
[2023-05-21] MEDS: MORPHINE SULFATE 2 MG IV ×2 (17:46→20:06)
[2023-05-21] MEDS: LIPITOR 80 MG PO (17:47)
[2023-05-21] MEDS: LOVENOX 30 MG SC (17:47)
--- NOTE | 2023-05-21 23:50 | PTCARENOTE ---
Assumed care of patient at 1900. Patient found in bed at time of assessment. Patient is AOx4, follows commands appropriately, moves all extremities. Lung sounds have fine crackles in the left base, clear in all other gracia, patient is on RA saO2 at
97%. Heart sounds have a regular rate and rhythm, patient is SR with BBB on monitor, no edema is noted patient has weak but palpable dorsalis pedis pulses. Patient has active BS and is continent of bowel/bladder. Patient is voiding clear yellow
urine in the bathroom. There is a 4x4 gauze dressing over the R groin puncture that is CDI. Patient has a R hand 20G PIV available for intermittent infusion. Patient will be NPO PMN for scheduled cardiac cath in the morning. VSS.
[2023-05-22] VITALS (15 sets, daily range): BP systolic 134–159; BP diastolic 53–87; BMI 24.6
--- NOTE | 2023-05-22 01:15 | PTCARENOTE ---
Patient reassessed. VSS. Administered morphine 1x for pain 7/10 in back patient able to sleep temporarily. Pain returned given tyelnol prn and applied warm compress. Patient able to fall back asleep. Remains in SR with BBB on the monitor. Patient is
stable.
[2023-05-22] MEDS: ULTRAM 50 MG PO (04:34)
--- NOTE | 2023-05-22 04:40 | PTCARENOTE ---
Patient reassessed. VSS. Remains SR with BBB on the monitor. Patient c/o 10 lower back pain hunched over in bed. CT PA notified. Received orders for ultram which were quickly administered. AM labs obtained. AM hygiene care provided. Patient is
stable.
[2023-05-22 06:24] LABS: Hematocrit 39.6 % (37.0-47.0); Hemoglobin 13.6 g/dL (12.0-16.0); Mean Corp Hgb Conc. 34.3 g/dL (33.0-37.0); Mean Corpuscular Hgb 30.5 pg (27.0-31.0); Mean Corpuscular Volume 88.8 fL (81.0-99.0); Mean Platelet Volume 11.1 fL (7.4-10.4); Platelet Count 258 10^3/uL (130-400); Red Blood Cell Count 4.46 10^6/uL (4.20-5.40); Red Cell Dist. Width 13.7 % (11.5-14.5); White Blood Cell Count 13.2 10^3/uL (4.8-10.8)
[2023-05-22 06:45] LABS: ALT (SGPT) 82 U/L (0-35); AST (SGOT) 225 U/L (14-36); Albumin 3.4 g/dl (3.5-5.0); Alkaline Phosphatase 74 U/L (38-126); Blood Urea Nitrogen 52 mg/dl (7-17); Calcium 8.9 mg/dl (8.4-10.2); Carbon Dioxide 28 mmol/L (22-30); Chloride 98 mmol/L (98-107); Estimated Creatinine Clearance 34 ml/min; Glucose 104 mg/dl (70-99); Potassium 3.9 mmol/L (3.5-5.1); Sodium 134 mmol/L (135-145); Total Bilirubin 1.2 mg/dl (0.2-1.3); Total Protein 5.8 g/dl (6.3-8.2); eGFR 43.69
--- NOTE | 2023-05-22 07:00 | PTCARENOTE ---
Bedside walking rounds report received. Patient is awake alert and oriented x 3. Denies pain. Denies chest pain. NSR with BBB on monitor. NPO except for meds with sips of H20 . quality assurance qa lab analyst today for stenting circ with Dr. Rey.
[2023-05-22] MEDS: PROTONIX 40 MG PO (08:48)
[2023-05-22] MEDS: LOW STRENGTH ASPIRIN 81 MG PO (08:48)
[2023-05-22] MEDS: BUMEX 1 MG PO (08:48)
[2023-05-22] MEDS: PLAVIX 75 MG PO (08:48)
[2023-05-22] MEDS: TOPROL XL 12.5 MG PO (08:49)
[2023-05-22] MEDS: ERYTHROMYCIN 0.5% OPHTHALMIC OINTMENT 1 APPLIC OPHTH ×3 (08:49→21:16)
[2023-05-22] MEDS: MIRALAX TUBE (08:49)
[2023-05-22] MEDS: KCL 40 MEQ PO (08:49)
[2023-05-22] MEDS: ULTRAM 25 MG PO ×2 (12:06→20:44)
--- NOTE | 2023-05-22 13:14 | W.PN.CD ---
Today's Communication / Plan
-
Staged PCI today.
GDMT.
Discharge planning.
Impression / Plan
-
Impression/Plan: 72 y/o female tobacco user and limited medical contact admitted with STEMI and acute heart failure.
#STEMI
-S/P successful PCI to a large, acutely occluded diagonal (Medtronic [place] 2.0 x 18 MARIA EUGENIA) with reduction in stenosis to 0%, restoring BETO III flow.
-Troponin peaked at 190.
-DAPT for at least one year, followed by aspirin indefinitely.
-ECHO shows EF 30-35%, IL HK, mild to mod AR, mild to mod MR.
-Secondary prevention with high dose, high potency statin.
-Ticagrelor changed to clopidogrel for cost reasons.
#ICMO/HFrEF
-Acute, severe.
-New diagnosis.
-LVEDP = 52 mmHg at the time of cath.
-Na down to 134. BUN/Cr stable.
-Decrease bumetanide to 0.5 mg daily.
-Start GDMT after cath (lisinopril, SGLT2i - cost pending, spironolactone).
#Residual CAD
-RCA 100% occlusion, subtotal mLCx and OM1.
-Plan for staged revascularization today.
#Acute Kidney Injury
-Stablizing.
-Creatinine 1.5 --> 1.9 --> 1.6 --> 1.7- 1.4
#Eye Pain
-Acute, new diagnosis. Improving
- Dr Rey discussed with ophthalmology regional forester, who believes that this is almost certainly a corneal abrasion, very common with rapid intubation.
-Erythromycin opth QID recommended and ordered.
#Hyperlipidemia
-New diagnosis.
-Total cholesterol = 202, LDL = 90, HDL = 86, Triglycerides = 131.
-Continue atorvastatin 80 mg daily.
-Goal LDL < 55.
#PPx
-SCD's for DVT/VTE.
-Pantoprazole for PUD.
#Dispo
-CVICU status.
-Full code.
Subjective/Interval History:
Abdominal pain Saturday.
CT abd/pelvis was reassuring.
BUN/Cr stable, Na down to 134.
DATA:
CXR, 05/19/2023:
IMPRESSION:
Small loculated right pleural effusion. New.
Mild opacification right lower lung field concerning for pneumonia. Mildly improved.
Mild left lower lobe atelectasis versus scarring. New.
Cardiac Catheterization/PCI, 05/19/2023:
CONCLUSIONS
1.� Right dominant circulation with chronic total occlusion of the mid RCA, chronic subtotal occlusion of the circumflex and the first obtuse marginal, a 60-70% lesion in the distal LAD, proximal to the apex and an acutely occluded, large first
diagonal, status post successful PCI (Medtronic [place] 2.0 x 18 MARIA EUGENIA) with reduction in stenosis to 0%, restoring BETO-3 flow.
2.� Mildly dilated left ventricle with akinesis of the inferior wall and severe hypokinesis of the lateral wall with severely depressed systolic function.� Left ventricular ejection fraction estimated at 20%.
3.� Severely elevated filling pressures (LVEDP = 52 mmHg at 72.0 kg).
4.� At least moderate mitral valve regurgitation on ventriculography.
TTE, 05/20/2023:
CONCLUSIONS
�Moderately reduced left ventricular systolic function. Left ventricular
�ejection fraction is 30-35%.
�Severe hypokinesis of� the basal to mid� inferior/inferolateral segments.
�Stage II diastolic dysfunction suggestive of abnormal relaxation and increased
�filling pressures.
�Mild/moderate mitral regurgitation.
�Mild/moderate aortic regurgitation.
�
�No prior study available for comparison.
Physical Exam
Vital Signs/Labs
Vital Signs
Temp Pulse Resp BP Pulse Ox
36.7 C 63 18 134/63 96
05/22/23 11:55 05/22/23 11:55 05/22/23 11:55 05/22/23 11:55 05/22/23 11:55
05/21/23 05/22/23 05/23/23
11:59 11:59 11:59
Actual Weight 65.1 kg 65 kg
05/22/23 04:57
05/22/23 04:57
PT 14.4 Sec (11.4-14.6) 05/19/23 04:58
INR 1.14 05/19/23 04:58
APTT 29.8 Sec (23.4-35.0) 05/19/23 04:58
Magnesium 2.2 mg/dl (1.6-2.3) 05/20/23 12:54
Triglycerides 131 mg/dl (10-149) 05/20/23 03:17
LDL Cholesterol, Calc 90 mg/dl 05/20/23 03:17
VLDL Cholesterol, Calc 26 mg/dl (0-30) 05/20/23 03:17
HDL Cholesterol 86 mg/dl 05/20/23 03:17
LAB Results
05/19/23 05/19/23 05/20/23
15:26 20:00 00:00
Troponin I 146.000 H* 190.000 H* D Cancelled
05/20/23
03:18
Troponin I 182.000 H*
Physical Exam
Constitutional: No acute distress and Comfortable
EENT: Anicteric and Moist mucous membranes
Cardiovascular: Rhythm & rate is regular, Pedal edema is absent, JVD pressure is normal, S1S2 is normal and Murmur/rub/gallop absent
Respiratory: Respiratory effort normal, Lungs clear to auscul., Wheeze Absent, Crackles Absent and Rhonchi Absent
GI: Soft, Distention absent, Flat, Non tender and Normal bowel sounds
Neuro/Psych: AO x 3
Data Reviewed
-
Date of Service: May 22, 2023
Medical Decision Making: Reviewed Test Results, Independent Historian Assessment and Test Interpretation
EKG: Tracing Personally Visualized and interpreted and Report Reviewed by me
Echo: Tracing Personally Visualized and interpreted and Report Reviewed by me
X-Ray/CT/US/MRI/NUC/PET: Image Personally Visualized and interpreted and Report Reviewed by me
Medical Tests (PFT, Pathology etc): Image Personally Visualized and interpreted and Report Reviewed by me
Labs: Labs Reviewed by me
[2023-05-22 15:28] LABS: ACT-LR - POC 393 Seconds (116-155)
[2023-05-22 15:51] LABS: ACT-LR - POC 207 Seconds (116-155)
--- NOTE | 2023-05-22 16:21 | ITS.CL.ANGIO ---
Doctor Of Veterinary Medicine - Angioplasty
Angioplasty
Procedure Report:
CARDIAC CATHETERIZATION REPORT
Date of Procedure: 05/22/2023
Referring: Benjamin Rey D.O.
INDICATION: Staged PCI after STEMI.
PROCEDURE:
1. Left heart catheterization.
2. Coronary angiography.
3. Successful PCI of the AV groove circumflex.
4. Successful PCI of the proximal circumflex into the first obtuse marginal.
5. Probing of the right coronary artery, confirming that the lesion is a chronic total occlusion.
ACCESS:
6 [place]an left common femoral artery using a modified Seldinger technique with a micropuncture kit under ultrasound guidance.
CATHETERS:
1. 6 [place]an EBU 4.0 guiding catheter.
2. 6 [place]uean JR4 guiding catheter.
HEMODYNAMIC DATA
Weight (kg): 64.9
AO (s/d/x, mmHg): 132/52/79
LV (s/x mmHg): 154/15
LEFT VENTRICULOGRAPHY: Not performed.
CORONARY ANGIOGRAPHY
Dominance: Right.
Left Main: Normal size, bifurcating vessel. There is no coronary artery disease.
LAD: Normal size vessel that wraps around the distal apex giving rise to 1 significant diagonal. There is a 50% lesion in the distal LAD. A patent stent is visible in the proximal/ostial diagonal. The diagonal is otherwise moderately,
diffusely diseased.
Ramus: Congenitally absent.
Circumflex: Normal size, nondominant vessel giving rise to 2 obtuse marginals. The mid circumflex is subtotally occluded leading into the second marginal. There is an 80% lesion in the ostial first obtuse marginal.
RCA: Normal size, dominant vessel. The vessel is occluded at its midportion.
INTERVENTION(S)
1. Successful PCI of the subtotal mid circumflex occlusion (Medtronic [place] Kemmerer 2.0 x 26 MARIA EUGENIA, postdilated with a 2.25 x 8 NC balloon in the mid and proximal margin) with reduction in stenosis to 0%, restoring BETO-3 flow.
2. Successful PCI of the 80% ostial OM1 lesion extending back into the proximal circumflex (Medtronic Rolando Kemmerer 2.25 x 15 MARIA EUGENIA) with reduction in stenosis to 0%, maintaining BETO-3 flow.
3. Successful probing of the right coronary artery occlusion, confirming that the lesion is a chronic total occlusion.
Narrative:
The decision was made to proceed with percutaneous coronary intervention. A 6Fr EBU 4.0 guiding catheter was advanced to the aortic root and seated in the left main coronary artery. Heparin was given and a Power Turn Flex wire was advanced into the
distal OM1. A BMW wire was advanced into the distal circumflex and then into the second obtuse marginal. The mid circumflex subtotal lesion was predilated with a 2.0 x 12 semi-compliant balloon to 12 cj.
After the initial angioplasty, the vessel demonstrated significant spasm in the distal margin by the second obtuse marginal. The wire was repositioned several times, but spasm was still visible. Ultimately, a quick cross microcatheter was advanced
over the BMW wire which was subsequently removed. Nitroglycerin was given in the distal vessel with significant improvement.
The quick cross microcatheter was removed over the BMW wire using a wire pinning technique and a Medtronic Rol[place] Kemmerer 2.0 x 26 drug-eluting stent was advanced. The stent was deployed at 12 atmospheres. The stent balloon was removed. A 2.5 x 8
noncompliant balloon was advanced into the stent and the mid and proximal stent was postdilated to 12 atmospheres. 1 area of underexpansion in the proximal margin was postdilated to 14 cj. Angiography was performed in orthogonal views, confirming
good stent expansion and an excellent angiographic result.
We then turned our attention to the first obtuse marginal. It was very clear that we could not treat this area without the stent extending into the proximal circumflex lesion. The 80% ostial OM1 lesion was predilated with a 2.0 x 12 semi-compliant
balloon to 12 cj. The semi-compliant balloon was removed and a Medtronic [place] Kemmerer 2.25 x 15 drug-eluting stent was advanced. Meticulous care was taken while positioning the stent, ensuring that the entire lesion was covered and the stent
extended into the proximal circumflex but did not extend into the left main coronary artery the stent was deployed at 12 atmospheres. Angiography was performed in orthogonal views, confirming good stent expansion and an excellent angiographic result
in the proximal circumflex and first obtuse marginal. Unfortunately, this did show new arteria spasm in the mid circumflex, proximal to the stented segment. Nitroglycerin was given intracoronary without significant improvement. A 6 [place]an guide
liner was advanced over both wires into the proximal circumflex and a second dose of nitroglycerin was given with significant improvement in the arteria spasm. The power turn flex wire was pulled back from the first obtuse marginal and redirected
into the AV groove circumflex with relative ease. The BMW wire was pulled back from behind the obtuse marginal/ostial circumflex stent and then readvanced into the first obtuse marginal, again with relative ease, demonstrating that both arteries
are readily accessible. The coronary wires were withdrawn and the guide was disengaged from the artery.
We then turned our attention to the right coronary artery. The 6 [place]an EBU 4.0 guiding catheter was removed over a wire and a 6Fr JR4 guiding catheter was advanced to the aortic root and seated in the right coronary artery. A Power Turn Flex wire
was advanced into the mid RCA. The mid RCA was probed with the workhorse wire. Several attempts were made to pass lesion, all of which ended with the wire buckling in the mid section, confirming that the lesion was a chronic total occlusion. The
coronary wire was withdrawn and the guide was disengaged from the artery. The catheter was removed over a standard J-wire.
Closure Device: 6 [place]an Angio-Seal.
Radiation (mGy): 724.33
DAP (cm2.Gy): 55.8798
Fluoroscopy time (minutes): 19.1
Sedation time (minutes): 90
CONCLUSIONS
1. Right dominant circulation with RHINESTONE SETTER of the mid RCA, 50% distal LAD lesion, a patent stent in a moderately diffusely diseased diagonal, a subtotally occluded mid circumflex status post accessible PCI (Medtronic Rolando Kemmerer 2.0 x 26 MARIA EUGENIA,
postdilated with a 2.25 NC balloon in the mid and proximal margin) with reduction in stenosis to 0%, restoring BETO-3 flow, and an 80% ostial OM1 lesion extending back into the proximal circumflex status post successful PCI (Medtronic Rolando Kemmerer
2.25 x 15 MARIA EUGENIA) with reduction in stenosis to 0%, maintaining BETO-3 flow.
2. Mildly elevated filling pressures, likely appropriate for degree of LV dysfunction (LVEDP = 15 mmHg at 64.9 kg).
RECOMMENDATIONS:
1. Expectant management after cardiac catheterization via left common femoral approach.
2. Limited weight bearing for one week.
3. Maintain dual antiplatelet therapy with aspirin and clopidogrel.
4. Maintain euvolemia.
5. Guideline directed medical therapy as hemodynamics and renal function will tolerate.
Copy to: Benjamin Rey D.O.
Benjamin Rey, DO, FACC, FACP
--- NOTE | 2023-05-22 16:38 | PTCARENOTE ---
Patient returned from director of cardiac cath lab via bed; NSR on monitor and VSS; Left groin puncture site C/D/I; educated pt on keeping left leg straight.
--- NOTE | 2023-05-22 16:40 | ECGCV ---
Dr Marshall notified of ECG critical value identified by electronic interpretation on ECG completed on 05/22/2023, at 1630.
[2023-05-22] MEDS: ERYTHROMYCIN 0.5% OPHTHALMIC OINTMENT OPHTH (16:54)
[2023-05-22] MEDS: LOVENOX 30 MG SC (17:12)
[2023-05-22] MEDS: LIPITOR 80 MG PO (17:12)
--- NOTE | 2023-05-22 20:30 | PTCARENOTE ---
Pt received from william RN. Walking rounds completed. Pt s/p cardiac dairy lab technician w/ a left groin puncture site. Pt instructed to not move L leg and remain laying flat in bed. Left groin puncture site CDI, soft/nontender, and no bleeding noted. Pt SR
w/ BBB on monitor. HR 60s. BP stable. Bilateral radial pulses palpable. Bilateral DP pulses present w/ Doppler. Pt on RA. POX 96-98%. Breath sounds clear. Abdomen soft/nontender. Pt voiding w/o issue. Right hand PIV CDI and flushes. See work-list
for full nursing assessment and interventions. Call gayle within reach.
[2023-05-22] MEDS: TYLENOL 650 MG PO (22:49)
[2023-05-23] VITALS (10 sets, daily range): BP systolic 129–158; BP diastolic 58–78; BMI 24.8
--- NOTE | 2023-05-23 00:04 | PTCARENOTE ---
Previous assessment unchanged. Pt remains SR on monitor. HR 60s. BP stable. Left femoral cath site CDI and soft/nontender. Left DP pulse present w/ Doppler. Left leg pink/warm/cap refill <2 seconds. Pt on RA. POX 94%. Pt assisted OOB to use the
bathroom. Pt then repositioned back into bed. Pt c/o back pain - see MAR. Call gayle within reach.
[2023-05-23] MEDS: ULTRAM 25 MG PO ×2 (01:44→09:13)
[2023-05-23] MEDS: LIDOCAINE 4% PATCH 1 PATCH TOPICAL (04:45)
[2023-05-23] MEDS: TYLENOL 650 MG PO ×2 (04:46→09:12)
--- NOTE | 2023-05-23 05:15 | PTCARENOTE ---
Assessment unchanged. Pt SR w/ BBB on monitor. HR 60s. BP stable. Pt on RA. POX 95%. Left femoral cath site CDI. Pt assisted OOB to the bathroom and then repositioned back into bed. Labs drawn and sent. Weight obtained. EKG obtained. Pt c/o back
pain - see MAR. Call gayle within reach.
--- NOTE | 2023-05-23 05:26 | ECGCV ---
<CHIQUITA Fox> notified of ECG critical value identified by electronic interpretation on ECG completed on <05/23/23>, at <0505>.
[2023-05-23 05:27] LABS: Hematocrit 36.7 % (37.0-47.0); Hemoglobin 12.7 g/dL (12.0-16.0); Mean Corp Hgb Conc. 34.6 g/dL (33.0-37.0); Mean Corpuscular Hgb 30.7 pg (27.0-31.0); Mean Corpuscular Volume 88.6 fL (81.0-99.0); Mean Platelet Volume 10.5 fL (7.4-10.4); Platelet Count 230 10^3/uL (130-400); Red Blood Cell Count 4.14 10^6/uL (4.20-5.40); Red Cell Dist. Width 13.8 % (11.5-14.5); White Blood Cell Count 9.6 10^3/uL (4.8-10.8)
[2023-05-23 06:08] LABS: ALT (SGPT) 68 U/L (0-35); AST (SGOT) 143 U/L (14-36); Albumin 3.4 g/dl (3.5-5.0); Alkaline Phosphatase 88 U/L (38-126); Blood Urea Nitrogen 38 mg/dl (7-17); Calcium 8.6 mg/dl (8.4-10.2); Carbon Dioxide 30 mmol/L (22-30); Chloride 101 mmol/L (98-107); Estimated Creatinine Clearance 34 ml/min; Glucose 108 mg/dl (70-99); Potassium 3.6 mmol/L (3.5-5.1); Sodium 134 mmol/L (135-145); Total Bilirubin 0.8 mg/dl (0.2-1.3); Total Protein 5.8 g/dl (6.3-8.2); eGFR 43.69
[2023-05-23 07:44] LABS: ACT-LR - POC > 397 Seconds (116-155)
--- NOTE | 2023-05-23 08:00 | W.PN.CD ---
Today's Communication / Plan
-
Start lisinopril 2.5 mg daily.
Freire check SGLT2i.
Outpatient spironolactone.
Repeat echocardiogram in 90 days.
BMP in one week.
Referral to cardiac rehab.
Stable for discharge.
Impression / Plan
-
Impression/Plan: 72 y/o female tobacco user and limited medical contact admitted with STEMI and acute heart failure.
#STEMI
-S/P successful PCI to a large, acutely occluded diagonal (Medtronic Rol[place] 2.0 x 18 MARIA EUGENIA) with reduction in stenosis to 0%, restoring BETO III flow.
-Troponin peaked at 190.
-DAPT for at least one year, followed by aspirin indefinitely.
-ECHO shows EF 30-35%, IL HK, mild to mod AR, mild to mod MR.
-Secondary prevention with high dose, high potency statin.
-Ticagrelor changed to clopidogrel for cost reasons.
#ICMO/HFrEF
-Acute, severe.
-New diagnosis.
-LVEDP = 52 mmHg at the time of STEMI (05/19/2023), 15 mmHg at staged PCI (05/22/2023).
-Na stable at 134. BUN/Cr stable.
-Decrease bumetanide to 0.5 mg daily.
-Start lisinopril 2.5 mg daily.
-Freire check dapagliflozin/empagliflozin.
-Outpatient spironolactone.
-BMP in one week.
-Repeat echocardiogram in 90 days.
#Residual CAD
-Staged PCI to the mLCX (Medtronic Rolando [place] 2.0 x 26 MARIA EUGENIA, post dilated with a 2.25 x 8 NCB) and the ostial OM1/pLCx (Medtronic Rolando [place] 2.25 x 15 MARIA EUGENIA).
-mRCA probed with workhorse wire, confirming that the lesion is a STEM TEACHER.
#Acute Kidney Injury
-Stable.
-Creatinine 1.5 --> 1.9 --> 1.6 --> 1.7 --> 1.4 --> 1.3.
-BMP in one week.
#Eye Pain
-Acute, new diagnosis. Improving
-Discussed with ophthalmology control system manager, who believes that this is almost certainly a corneal abrasion, very common with rapid intubation.
-Erythromycin opth QID recommended and ordered. Complete 7 days.
#Hyperlipidemia
-New diagnosis.
-Total cholesterol = 202, LDL = 90, HDL = 86, Triglycerides = 131.
-Continue atorvastatin 80 mg daily.
-Goal LDL < 55.
#PPx
-SCD's for DVT/VTE.
-Pantoprazole for PUD.
#Dispo
-CVICU status.
-Full code.
Subjective/Interval History:
S/P staged PCI of LCx system yesterday.
LVEDP during cath was 15 mmHg.
Bumetanide decreased to 0.5 mg daily.
DATA:
CXR, 05/19/2023:
IMPRESSION:
Small loculated right pleural effusion. New.
Mild opacification right lower lung field concerning for pneumonia. Mildly improved.
Mild left lower lobe atelectasis versus scarring. New.
Cardiac Catheterization/PCI, 05/19/2023:
CONCLUSIONS
1.� Right dominant circulation with chronic total occlusion of the mid RCA, chronic subtotal occlusion of the circumflex and the first obtuse marginal, a 60-70% lesion in the distal LAD, proximal to the apex and an acutely occluded, large first
diagonal, status post successful PCI (Medtronic [place] 2.0 x 18 MARIA EUEGNIA) with reduction in stenosis to 0%, restoring BETO-3 flow.
2.� Mildly dilated left ventricle with akinesis of the inferior wall and severe hypokinesis of the lateral wall with severely depressed systolic function.� Left ventricular ejection fraction estimated at 20%.
3.� Severely elevated filling pressures (LVEDP = 52 mmHg at 72.0 kg).
4.� At least moderate mitral valve regurgitation on ventriculography.
TTE, 05/20/2023:
CONCLUSIONS
�Moderately reduced left ventricular systolic function. Left ventricular
�ejection fraction is 30-35%.
�Severe hypokinesis of� the basal to mid� inferior/inferolateral segments.
�Stage II diastolic dysfunction suggestive of abnormal relaxation and increased
�filling pressures.
�Mild/moderate mitral regurgitation.
�Mild/moderate aortic regurgitation.
�
�No prior study available for comparison.
Cardiac Catheterization/PCI, 05/22/2023:
CONCLUSIONS
1.� Right dominant circulation with STEM TEACHER of the mid RCA, 50% distal LAD lesion, a patent stent in a moderately diffusely diseased diagonal, a subtotally occluded mid circumflex status post accessible PCI (Medtronic [place] 2.0 x 26 MARIA EUGENIA,
postdilated with a 2.25 NC balloon in the mid and proximal margin) with reduction in stenosis to 0%, restoring BETO-3 flow, and an 80% ostial OM1 lesion extending back into the proximal circumflex status post successful PCI (Medtronic Rolando [place]
2.25 x 15 MARIA EUGENIA) with reduction in stenosis to 0%, maintaining BETO-3 flow.
2.� Mildly elevated filling pressures, likely appropriate for degree of LV dysfunction (LVEDP = 15 mmHg at 64.9 kg).
Physical Exam
Vital Signs/Labs
Vital Signs
Temp Pulse Resp BP Pulse Ox
36.8 C 66 16 133/73 96
05/23/23 04:00 05/23/23 04:45 05/23/23 04:00 05/23/23 04:00 05/23/23 04:45
05/21/23 05/22/23 05/23/23
11:59 11:59 11:59
Actual Weight 65.1 kg 65 kg 65.4 kg
05/23/23 05:16
05/23/23 05:16
PT 14.4 Sec (11.4-14.6) 05/19/23 04:58
INR 1.14 05/19/23 04:58
APTT 29.8 Sec (23.4-35.0) 05/19/23 04:58
Magnesium 2.2 mg/dl (1.6-2.3) 05/20/23 12:54
Triglycerides 131 mg/dl (10-149) 05/20/23 03:17
LDL Cholesterol, Calc 90 mg/dl 05/20/23 03:17
VLDL Cholesterol, Calc 26 mg/dl (0-30) 05/20/23 03:17
HDL Cholesterol 86 mg/dl 05/20/23 03:17
Physical Exam
Constitutional: No acute distress and Comfortable
EENT: Anicteric and Moist mucous membranes
Cardiovascular: Rhythm & rate is regular, Pedal edema is absent, JVD pressure is normal, S1S2 is normal and Murmur/rub/gallop absent
Respiratory: Respiratory effort normal, Lungs clear to auscul., Wheeze Absent, Crackles Absent and Rhonchi Absent
GI: Soft, Distention absent, Flat, Non tender and Normal bowel sounds
Neuro/Psych: AO x 3
Other: Cath Site (Right/Left femoral access sites are C/D/I.)
Data Reviewed
-
Date of Service: May 23, 2023
Medical Decision Making: Reviewed Test Results, Independent Historian Assessment and Test Interpretation
EKG: Tracing Personally Visualized and interpreted and Report Reviewed by me
Echo: Tracing Personally Visualized and interpreted and Report Reviewed by me
X-Ray/CT/US/MRI/NUC/PET: Image Personally Visualized and interpreted and Report Reviewed by me
Medical Tests (PFT, Pathology etc): Image Personally Visualized and interpreted, Report Reviewed by me, Discussed with Nurse and Discussed with Patient
Labs: Labs Reviewed by me
--- NOTE | 2023-05-23 08:32 | PTCARENOTE ---
Pt received from change of shift, pt oob in a chair, c/o pain to her lower back has lido patch on. VSS, voiding in BR, RA, NSR, no events overnight, pending cardio eval for possible dc home today. BL groin intact, no hematoma, palpable pulses
(weak), doppler confirmed.
[2023-05-23] MEDS: PROTONIX 40 MG PO (09:11)
[2023-05-23] MEDS: TOPROL XL 12.5 MG PO (09:11)
[2023-05-23] MEDS: MIRALAX 17 GRAMS TUBE (09:11)
[2023-05-23] MEDS: BUMEX 0.5 MG PO (09:12)
[2023-05-23] MEDS: KCL 40 MEQ PO (09:12)
[2023-05-23] MEDS: LOW STRENGTH ASPIRIN 81 MG PO (09:12)
[2023-05-23] MEDS: PLAVIX 75 MG PO (09:12)
[2023-05-23] MEDS: ERYTHROMYCIN 0.5% OPHTHALMIC OINTMENT 1 APPLIC OPHTH (09:13)
--- NOTE | 2023-05-23 12:00 | PTCARENOTE ---
Pt vss, NSR, RA, reassessment unchanged from previous, pt ambulating by her self in her room. rounded on pt and clear to get dc home, MUNIR Justin working on DC paperwork.
--- NOTE | 2023-05-23 12:27 | CM ---
Reviewed chart. Also reviewed with N.P. Met with Mrs. Edge to review discharge plans. She states she is feeling better and maybe able to go home. We reviewed the patient assistance program for Shakeel guillen Juddreyna. She has the applications to
complete. She will take them to her outpatient cardiology appointment for MD to complete his section of the application. Prior to admission she resides with her spouse in a one story home with thirteen steps to enter. She does not have any DME in
the home. She does not have a prescription plan. Her spouse will be home to assist in her care if needed. Medical work-up in progress. The discharge plan is to return home with her spouse when medically stable.
--- NOTE | 2023-05-23 12:59 | W.DS.TRANS ---
DC Summary - Puddler Helper
-
Discharge Instructions:
Discharge Diagnosis/Procedures STEMI/coronary artery disease, s/p angioplasty
and stent x1 to Diagonal (05/19), x1 to Left
Circumflex and x1 to Obtuse Marginal (05/22)
Heart failure with reduced ejection fraction
Acute Kidney injury
Diet Low Cholesterol,Low Sodium,2 Gram Sodium,
Restrict fluids to 48 oz,Low Fat
Activity No strenuous activity
Additional Activity For 1 month
Driving Restrictions No driving for 24 hours
Bathing Restrictions OK to Shower
Blood Work BMP in one week- lab slip to be given at d/c
Other Services Cardiac Rehab
Specialty Instructions Weigh Daily
Instructions:
Stand-Alone Forms: DC Instructions- Cath/EP Lab
Changes to Home Medications: Yes
Discharge Medications:
DC Medications w/original date entered in [facility]
Centrum Adults PO 1XD 05/20/23
aspirin 81 mg chewable tablet (Children's Aspirin) 81 mg PO DAILY #30 tabs 05/23/23
atorvastatin 80 mg tablet 80 mg PO QPM #30 tabs 05/23/23
bumetanide 0.5 mg tablet 0.5 mg PO DAILY #30 tabs 05/23/23
clopidogrel 75 mg tablet 75 mg PO DAILY #30 tabs 05/23/23
erythromycin 5 mg/gram (0.5 %) eye ointment 1 applic ophthalmic (eye) QID #1 tube 05/23/23
lisinopril 2.5 mg tablet 2.5 mg PO DAILY #30 tabs 05/23/23
metoprolol succinate 25 mg tablet,extended release 24 hr 12.5 mg PO DAILY #15 tabs 05/23/23
nitroglycerin 0.4 mg sublingual tablet (Nitrostat) 0.4 mg sublingual Q5M PRN chest pain #25 tabs 05/23/23
pantoprazole 40 mg tablet,delayed release 40 mg PO DAILY #3 tabs 05/23/23
potassium chloride 20 mEq tablet,extended release(part/cryst) 40 meq PO DAILY #60 tabs 05/23/23
Home Medication Changes
all meds except multivitamin are new
Pending Results: No
--- NOTE | 2023-05-23 14:32 | PTCARENOTE ---
Pt getting discharged home, RN reviewed medications, discharged instructions, appts and all referral with pt and spouse at bedside. All questions and concerns addressed at the time of discussion. IV and tele pack dced, belongings from room return.
Pt escorted by RN via wheel chair.
== END 2023-05-23 15:10 | disposition home or self-care (01) | DRG 321 ==
LOC: CVICU 05:36
PROVIDERS: Nurse Practitioner; Nurse Practitioner Gerontology; ADMITTING PHYSICIAN Internal Medicine Cardiovascular Disease; EMERGENCY PHYSICIAN Student in an Organized Health Care Education/Training Program; OTHER PHYSICIAN Internal Medicine Critical Care Medicine
PROC: 0BH17EZ Insertion of Endotracheal Airway into Trachea, Via Natural or Artificial Opening (ICD-10-PCS; 2023-05-19)
PROC: 027034Z Dilation of Coronary Artery, One Artery with Drug-eluting Intraluminal Device, Percutaneous Approach (ICD-10-PCS; 2023-05-19)
PROC: B2111ZZ Fluoroscopy of Multiple Coronary Arteries using Low Osmolar Contrast (ICD-10-PCS; 2023-05-19)
PROC: 5A2204Z Restoration of Cardiac Rhythm, Single (ICD-10-PCS; 2023-05-19)
PROC: 5A1935Z Respiratory Ventilation, Less than 24 Consecutive Hours (ICD-10-PCS; 2023-05-19)
PROC: B2151ZZ Fluoroscopy of Left Heart using Low Osmolar Contrast (ICD-10-PCS; 2023-05-19)
PROC: 4A023N7 Measurement of Cardiac Sampling and Pressure, Left Heart, Percutaneous Approach (ICD-10-PCS; 2023-05-19)
PROC: 027135Z Dilation of Coronary Artery, Two Arteries with Two Drug-eluting Intraluminal Devices, Percutaneous Approach (ICD-10-PCS; 2023-05-22)
DX: I21.19 ST elevation (STEMI) myocardial infarction involving other coronary artery of inferior wall (principal); I50.21 Acute systolic (congestive) heart failure; J96.91 Respiratory failure, unspecified with hypoxia; N17.9 Acute kidney failure, unspecified; I47.20 Ventricular tachycardia, unspecified; J98.11 Atelectasis; I11.0 Hypertensive heart disease with heart failure; I44.7 Left bundle-branch block, unspecified; Z66 Do not resuscitate; I25.10 Atherosclerotic heart disease of native coronary artery without angina pectoris; I25.5 Ischemic cardiomyopathy; I08.0 Rheumatic disorders of both mitral and aortic valves; D72.829 Elevated white blood cell count, unspecified; R73.9 Hyperglycemia, unspecified; I25.82 Chronic total occlusion of coronary artery; S05.00XA Injury of conjunctiva and corneal abrasion without foreign body, unspecified eye, initial encounter; X58.XXXA Exposure to other specified factors, initial encounter; E78.5 Hyperlipidemia, unspecified
CPT/HCPCS: 31500; 36600; 51702; 71045; 74176; 76937; 80048; 80053; 80061; 82248; 82330; 82805; 83036; 83605; 83735; 84132; 84478; 84484; 85014; 85018; 85025; 85027; 85347; 85610; 85730; 93005; 93306; 93458; 94002; 99291; 99406; C1725; C1760; C1769; C1874; C1887; C1894; C9600; C9601; C9606; J1205; Q9967

== ENCOUNTER 2023-07-04 08:53 | Outpatient (RCR) | payer MEDICARE, SELFPAY ==
[2023-06-25 09:54] LABS: Glucose - Point of Care 94 mg/dl (70-99)
[2023-06-25 10:49] LABS: Glucose - Point of Care 92 mg/dl (70-99)
[2023-06-27 08:39] LABS: Glucose - Point of Care 87 mg/dl (70-99)
[2023-06-27 09:26] LABS: Glucose - Point of Care 73 mg/dl (70-99)
== END 2023-07-04 23:59 | disposition home or self-care (01) ==
LOC: CRHB 08:53
PROVIDERS: ATTENDING PHYSICIAN Internal Medicine Cardiovascular Disease
DX: I21.01 ST elevation (STEMI) myocardial infarction involving left main coronary artery (principal); Z95.5 Presence of coronary angioplasty implant and graft; I25.10 Atherosclerotic heart disease of native coronary artery without angina pectoris
CPT/HCPCS: 82962; 93798; G0422; G0423

== ENCOUNTER 2023-08-06 08:30 | Outpatient (RCR) | payer MEDICARE, SELFPAY | END 2023-08-06 23:59 | disposition home or self-care (01) | LOC: CRHB 08:30 | PROVIDERS: ATTENDING PHYSICIAN Internal Medicine Cardiovascular Disease; FAMILY PHYSICIAN Physician Assistant Medical | DX: I21.01 ST elevation (STEMI) myocardial infarction involving left main coronary artery (principal); Z95.5 Presence of coronary angioplasty implant and graft; I25.10 Atherosclerotic heart disease of native coronary artery without angina pectoris | CPT/HCPCS: G0422; G0423 ==

== ENCOUNTER → 2023-08-23 10:19 | Outpatient (REF) | payer MEDICARE, SELFPAY | LOC: RCS 10:19 | PROVIDERS: ATTENDING PHYSICIAN Internal Medicine Cardiovascular Disease; FAMILY PHYSICIAN Family Medicine | DX: I25.10 Atherosclerotic heart disease of native coronary artery without angina pectoris (principal); I21.3 ST elevation (STEMI) myocardial infarction of unspecified site; I25.5 Ischemic cardiomyopathy | CPT/HCPCS: 93308; 93321; 93325 ==

== ENCOUNTER → 2023-09-03 14:15 | Outpatient (REF) | payer MEDICARE, SELFPAY | LOC: RAD 14:15 | PROVIDERS: ATTENDING PHYSICIAN Internal Medicine Cardiovascular Disease; FAMILY PHYSICIAN Family Medicine | DX: R09.89 Other specified symptoms and signs involving the circulatory and respiratory systems (principal); I25.10 Atherosclerotic heart disease of native coronary artery without angina pectoris | CPT/HCPCS: 93880 ==

== ENCOUNTER → 2023-09-05 09:35 | Outpatient (REF) | payer MEDICARE, SELFPAY | LOC: RAD 09:35 | PROVIDERS: ATTENDING PHYSICIAN Internal Medicine Cardiovascular Disease; FAMILY PHYSICIAN Family Medicine | DX: I73.9 Peripheral vascular disease, unspecified (principal) | CPT/HCPCS: 93922; 93925 ==

== ENCOUNTER 2023-09-06 11:32 | Outpatient (RCR) | payer MEDICARE, SELFPAY | END 2023-09-06 23:59 | disposition home or self-care (01) | LOC: CRHB 11:32 | PROVIDERS: ATTENDING PHYSICIAN Internal Medicine Cardiovascular Disease; FAMILY PHYSICIAN Physician Assistant Medical | DX: Z95.5 Presence of coronary angioplasty implant and graft (principal); I21.01 ST elevation (STEMI) myocardial infarction involving left main coronary artery | CPT/HCPCS: 93880; G0422; G0423 ==

== ENCOUNTER 2023-10-03 08:33 | Outpatient (RCR) | payer MEDICARE, SELFPAY | END 2023-10-03 23:59 | disposition home or self-care (01) | LOC: CRHB 08:33 | PROVIDERS: ATTENDING PHYSICIAN Internal Medicine Cardiovascular Disease; FAMILY PHYSICIAN Physician Assistant Medical | DX: I25.10 Atherosclerotic heart disease of native coronary artery without angina pectoris (principal); Z95.5 Presence of coronary angioplasty implant and graft; I25.2 Old myocardial infarction | CPT/HCPCS: G0422; G0423 ==

== ENCOUNTER 2023-10-04 07:35 | Outpatient (RCR) | payer MEDICARE, SELFPAY ==
[2023-10-04 07:55] VITALS: BP 156/46
[2023-10-04] MEDS: SODIUM BICARBONATE 1150 MEQ IV (08:10)
== END 2023-10-06 23:59 | disposition home or self-care (01) ==
LOC: OID 07:35
PROVIDERS: ATTENDING PHYSICIAN Surgery Vascular Surgery; FAMILY PHYSICIAN Family Medicine
DX: I70.213 Atherosclerosis of native arteries of extremities with intermittent claudication, bilateral legs (principal)
CPT/HCPCS: 96360; 96361

== ENCOUNTER → 2023-10-04 08:01 | Outpatient (REF) | payer MEDICARE, SELFPAY | LOC: RAD 08:01 | PROVIDERS: ATTENDING PHYSICIAN Surgery Vascular Surgery; FAMILY PHYSICIAN Family Medicine | DX: I73.9 Peripheral vascular disease, unspecified (principal) | CPT/HCPCS: 75635; Q9967 ==

== ENCOUNTER 2023-10-15 09:52 | Outpatient (RCR) | payer MEDICARE, SELFPAY | END 2023-10-15 23:59 | disposition home or self-care (01) | LOC: CRHB 09:52 | PROVIDERS: ATTENDING PHYSICIAN Internal Medicine Cardiovascular Disease; FAMILY PHYSICIAN Physician Assistant Medical | DX: I25.10 Atherosclerotic heart disease of native coronary artery without angina pectoris (principal); Z95.5 Presence of coronary angioplasty implant and graft; I25.2 Old myocardial infarction; I25.5 Ischemic cardiomyopathy; E78.5 Hyperlipidemia, unspecified | CPT/HCPCS: G0422; G0423 ==

== ENCOUNTER → 2024-05-11 08:43 | Outpatient (REF) | payer MEDICARE, SELFPAY | LOC: DHVS 08:43 | PROVIDERS: ATTENDING PHYSICIAN Surgery Vascular Surgery; FAMILY PHYSICIAN Family Medicine | DX: I73.9 Peripheral vascular disease, unspecified (principal) | CPT/HCPCS: 93922; 93925 ==

== ENCOUNTER → 2024-11-17 08:33 | Outpatient (REF) | payer MEDICARE, SELFPAY | LOC: RAD 08:33 | PROVIDERS: ATTENDING PHYSICIAN Surgery Vascular Surgery; FAMILY PHYSICIAN Family Medicine | DX: I73.9 Peripheral vascular disease, unspecified (principal) | CPT/HCPCS: 93922; 93925 ==

== ENCOUNTER → 2024-11-25 12:44 | Outpatient (REF) | payer MEDICARE, SELFPAY | LOC: RCS 12:44 | PROVIDERS: ATTENDING PHYSICIAN Internal Medicine Cardiovascular Disease; FAMILY PHYSICIAN Family Medicine | DX: I34.0 Nonrheumatic mitral (valve) insufficiency (principal) | CPT/HCPCS: 93306 ==